=== PATIENT | female | born 1950 | race Caucasian/White ===

== ENCOUNTER → 2017-04-23 | Outpatient (CLI) | payer BC ==
[2017-04-23 18:06] LABS: ALB/GLOB RATIO 0.8 (0.9-2); ALKALINE PHOSPHATASE 113 U/L (45-117); ALT/SGPT 80 U/L (12-78); AST/SGOT 47 U/L (15-37); BLOOD UREA NITROGEN 16 mg/dl (7-18); BUN/CREATININE RATIO 14.1 (10-20); CALCIUM 9.3 mg/dl (8.5-10.1); CARBON DIOXIDE 28 mmol/L (21-32); CHLORIDE 100 mmol/L (98-107); CHOLESTEROL 225 mg/dl (0-200); CHOLESTEROL/HDL RATIO 5.1; GLUCOSE 327 mg/dl (70-99); HDL CHOLESTEROL 44 mg/dl; LDL CHOLESTEROL CALCULATED 112 mg/dl; POTASSIUM 4.5 mmol/L (3.5-5.1); SODIUM 136 mmol/L (136-145); TRIGLYCERIDES 343 mg/dl (0-150); VERY LOW DENSITY LIPOPROT CALC 69 mg/dl
[2017-04-23 19:09] LABS: BETA-HYDROXYBUTYRATE 1.66 mg/dL (0.2-2.81)
== END | disposition home or self-care (01) ==
LOC: C.LABPBG 15:49
PROVIDERS: ATTEND Physician Assistant
DX: Z00.00 Encounter for general adult medical examination without abnormal findings (principal); E11.9 Type 2 diabetes mellitus without complications

== ENCOUNTER → 2017-07-02 | Outpatient (CLI) | payer BC ==
[2017-07-02 12:32] LABS: ESTIMATED AVERAGE GLUCOSE 275 mg/dl; HA1C FLAG Normal (Normal)
[2017-07-02 12:34] LABS: RATIO 65.5 mcg/mg (0-30.0)
== END | disposition home or self-care (01) ==
LOC: C.LABPBG 08:04
PROVIDERS: ATTEND Nurse Practitioner Family
DX: E11.9 Type 2 diabetes mellitus without complications (principal)

== ENCOUNTER → 2017-10-01 | Outpatient (CLI) | payer BC ==
[2017-10-01 11:51] LABS: BLOOD UREA NITROGEN 20 mg/dl (7-18); BUN/CREATININE RATIO 18.4 (10-20); CALCIUM 9.2 mg/dl (8.5-10.1); CARBON DIOXIDE 29 mmol/L (21-32); CHLORIDE 101 mmol/L (98-107); CREATININE 1.06 mg/dl (0.60-1.20); GLUCOSE 157 mg/dl (70-99); POTASSIUM 4.3 mmol/L (3.5-5.1); SODIUM 136 mmol/L (136-145)
[2017-10-01 12:11] LABS: RATIO 46.2 mcg/mg (0-30.0)
[2017-10-01 12:20] LABS: ESTIMATED AVERAGE GLUCOSE 237 mg/dl; HA1C FLAG Normal (Normal)
== END | disposition home or self-care (01) ==
LOC: C.LABPBG 07:41
PROVIDERS: ATTEND Nurse Practitioner Family
DX: E11.65 Type 2 diabetes mellitus with hyperglycemia (principal)

== ENCOUNTER → 2017-11-01 | Outpatient (CLI) | payer BC ==
[2017-11-01 13:25] LABS: HEMOGLOBIN A1C 9.7 % (4.5-5.6)
[2017-11-01 13:36] LABS: BLOOD UREA NITROGEN 22 mg/dl (7-18); CALCIUM 9.2 mg/dl (8.5-10.1); CARBON DIOXIDE 27 mmol/L (21-32); CREATININE 1.01 mg/dl (0.60-1.20); GLUCOSE 167 mg/dl (70-99); POTASSIUM 4.2 mmol/L (3.5-5.1); SODIUM 137 mmol/L (136-145)
[2017-11-01 13:39] LABS: CHOLESTEROL 154 mg/dl (0-200); LDL CHOLESTEROL CALCULATED 67 mg/dl
== END | disposition home or self-care (01) ==
LOC: C.LABPBG 07:37
PROVIDERS: ATTEND Physician Assistant
DX: Z00.00 Encounter for general adult medical examination without abnormal findings (principal); E11.65 Type 2 diabetes mellitus with hyperglycemia

== ENCOUNTER → 2018-01-30 | Outpatient (CLI) | payer BC ==
[2018-01-30 13:02] LABS: HEMOGLOBIN A1C 8.2 % (4.5-5.6)
== END | disposition home or self-care (01) ==
LOC: C.LABPBG 07:36
PROVIDERS: ATTEND Nurse Practitioner Family
DX: E11.65 Type 2 diabetes mellitus with hyperglycemia (principal)

== ENCOUNTER → 2018-05-23 | Outpatient (CLI) | payer BC ==
--- NOTE | 2018-05-23 10:53 | DIAGNOSTIC IMAGING REPORT ---
R INJ MAJOR JNT SHLDR,HIP,KNEE FLUOROSCOPY TIME: 22 seconds HISTORY: Chronic right hip pain. PROCEDURE: After obtaining written informed consent, the patient was placed supine on the fluoroscopy table. A suitable site for needle insertion was marked using fluoroscopic guidance. The right hip was prepped and draped in the usual sterile fashion. 1% lidocaine was used for skin, subcutaneous and deep soft tissue anesthesia. Under intermittent fluoroscopic guidance, a 22 gauge x 3.5 inch spinal needle was inserted into the right femoral acetabular joint. 2 cc of Optiray 300 was injected to confirm the intra-articular location. This is followed by a mixture of 5cc of 0.5% bupivacaine and 2 cc of Celestone at the request of the referring physician. The needle was then removed. There were no apparent complications. IMPRESSION: Fluoroscopic-guided right hip steroid injection without immediate complication. The above report was generated using voice recognition software. It may contain grammatical, syntax or spelling errors. Electronically signed by: Jadiel Yeung M.D. 05/23/2018 10:51 AM Dictated Date/Time: 05/23/2018 10:50 AM
== END | disposition home or self-care (01) ==
LOC: C.RADBC 09:35
PROVIDERS: ATTEND Orthopaedic Surgery
DX: M16.11 Unilateral primary osteoarthritis, right hip (principal)

== ENCOUNTER 2022-01-10 18:55 | Inpatient (IN) ==
[2022-01-10] MEDS ORDERED: SODIUM CHLORIDE 0.9% 1000ML 1,000 ML IV ONE (20:04)
[2022-01-10] MEDS ORDERED: ACETAMINOPHEN 1,000 MG/100 ML VIAL IV STA (20:20)
[2022-01-10 20:22] LABS: Appearance Urine Turbid (Clear); Bacteria Urine Automated 2+ (Negative); Bilirubin Urine Negative (Negative); Blood Urine 3+ (Negative); Color Urine Yellow; Epithelial Cell Urine Auto >30 /lpf (0-5); Glucose Urine UA Trace (Negative); Ketones Urine Trace (Negative); Leukocyte Esterase Urine 1+ (Negative); Nitrite Urine Negative (Negative); Protein Urine 2+ (Negative); Specific Gravity Urine 1.021 (1.000-1.030); Urobilinogen Urine Negative (Negative)
[2022-01-10 20:32] LABS: Basophils # (auto) 0.02 K/uL (0-0.2); Basophils % (auto) 0.1 %; Eosinophils # (auto) 0.16 K/uL (0-0.5); Eosinophils % (auto) 0.9 %; Hematocrit (blood only) 42.2 % (37-47); Hemoglobin 13.4 g/dL (12.0-16.0); Immature Granulocytes # (auto) 0.05 K/uL (0.00-0.02); Immature Granulocytes % (auto) 0.3 %; Lymphocytes # (auto) 2.06 K/uL (1.2-3.4); Lymphocytes % (auto) 11.2 %; Mean Corpuscular Hemoglobin 26.3 pg (25-34); Mean Corpuscular Hgb Conc 31.8 g/dL (32-36); Mean Corpuscular Volume 82.9 fL (80-100); Mean Platelet Volume 9.7 fL (7.4-10.4); Monocytes # (auto) 0.94 K/uL (0.11-0.59); Monocytes % (auto) 5.1 %; Neutrophils # (auto) 15.19 K/uL (1.4-6.5); Neutrophils % (auto) 82.4 %; Platelet Count 400 K/uL (130-400); RDW Coefficient of Variation 15.1 % (11.5-14.5); RDW Standard Deviation 45.9 fL (36.4-46.3); Red Blood Count 5.09 M/uL (4.2-5.4); White Blood Count 18.42 K/uL (4.8-10.8)
[2022-01-10 20:34] LABS: Uric Acid Crystals Urine Present (None Prsent)
[2022-01-10] MEDS ORDERED: ONDANSETRON INJ 2 MG/ML 2 ML VIAL ONE (20:36)
[2022-01-10 20:44] LABS: Troponin I < 0.03 ng/ml (0-0.04)
[2022-01-10 20:47] LABS: Alanine Aminotransferase 28 U/L (7-52); Albumin Globulin Ratio 1.1 (0.9-2); Albumin Level 4.4 gm/dl (3.4-5.0); Alkaline Phosphatase 81 U/L (34-104); Anion Gap 11 (3-11); Aspartate Aminotransferase 20 U/L (13-39); BUN Creatinine Ratio 13.8 (10-20); Bilirubin Direct 0.1 mg/dl (0-0.2); Bilirubin,Total 0.3 mg/dl (0.2-1.0); Blood Urea Nitrogen 17 mg/dl (6-23); Calcium 9.8 mg/dl (8.5-10.1); Carbon Dioxide 24 mmol/L (21-32); Chloride 104 mmol/L (98-107); Creatinine Clr Calc Pharmacy 43.5 ml/min; Est GFR (African American) 50.7 ml/min; Est GFR (Non-African American) 43.8 ml/min; Glucose 150 mg/dl (70-99(Fasting)); Lipase 42 U/L (11-82); Magnesium 1.5 mg/dl (1.7-2.4); Potassium 3.9 mmol/L (3.5-5.1); Sodium 139 mmol/L (136-145); Total Protein 8.4 gm/dl (6.0-8.3)
[2022-01-10] MEDS ORDERED: OPTIRAY 320 100ml IV ONE (21:02)
[2022-01-10] MEDS ORDERED: MAGNESIUM SULFATE / D5W 1 GM/100 ML BAG IV STA (21:25)
[2022-01-10] MEDS ORDERED: cefTRIAXone SODIUM 2,000 MG/70 ML BAG IV STA (21:56)
--- NOTE | 2022-01-10 22:53 | History & Physical Report ---
Date of Service January 10, 2022 Assessment & Plan (1) Renal stone: Plan: 71yo female with one day of severe left flank pain, nausea. Found to have obstructing stone in left ureter, 1mm in size with associated hydroureteronephrosis and perinephric stranding. UA with possible infection - bacteria present as well as LE/WBCs and blood. Also with Uric Acid crystals - ?uric acid stone. Patient with history of MGUS/Essential thrombocytosis, chronically elevated WBC count -Admit to medical. Keep NPO -Strain urine -Flomax 0.4mg now and qHS -Zofran PRN nausea -Tylenol and Morphine PRN pain -Ceftriaxone 2gm IV daily -Follow urine and blood cultures sent in ER -IVF with LR at 125mL/hr x 2 liters -Urology consultation appreciated -Stone studies may be helpful (2) Diabetes type 2, uncontrolled: Plan: Chronic. Well controlled. Last EpdK2M=3.3 on 09/26/21 -Lantus 8u BID -ISS -Goal blood sugar 100 - 140 (3) Hypertension: Plan: Elevated blood pressure, history of HTN -Pain control as above -Continue Clonidine 0.2mg po BID -Continue Lisinopril 40mg po daily -Continue to monitor (4) Dyslipidemia: Plan: Chronic. On medications -Continue Atorvastatin 10mg po qHS (5) Hypothyroidism: Plan: Chronic. Elevated TSH on last check -TSH with AM labs -Continue Synthroid 50mcg po daily (6) GERD (gastroesophageal reflux disease): Plan: Chronic. Well controlled on medications -Continue Protonix 40mg po daily (7) Chronic kidney disease, stage 3 (moderate): Plan: BUN and Cr near baseline -Avoid nephrotoxic agents -Monitor UOP, BUN/Cr and electroltyes Plan: F/E/N - LR at 125mL/hr x 2 liters, monitor electroltyes, NPO for now Ppx - SCDs Code - DNR/DNI per discusison with patient Dispo - Admit to medical History of Present Illness Chief Complaint: left flank pain Primary Care Provider: DO Zaria Reina is a pleasant 71yo female with history of CKD, DM, HTN, GERD, MGUS/ET presenting with acute onset left flank pain. Pain began this AM - left flank with radiation into the left groin. 7/10 in severity at its worst, intermittent, aching sensation. Also with nausea, chills and sweats. Reports decreased UOP. No dysuria, chest pain, palpitations, SOB. No abdominal pain. No history of renal stones. IN the ER patient afebrile, hypertensive otherwise HD stable. In significant discomfort ER Course: Tylenol, Ceftriaxone, Zofran, NSS Allergies Allergy/AdvReac Type Severity Reaction Status Date / Time amlodipine AdvReac Mild lower leg Verified 01/10/22 20:35 swelling Home Medications Medication Instructions Recorded Confirmed Type calcium carbonate 600 mg-vitamin 1 tab PO BID #90 tab 03/29/19 01/10/22 Rx D3 10 mcg (400 unit) tablet (Calcium 600 + D(3)) insulin syringe-needle U-100 1 mL #90 ea 03/31/19 01/10/22 Rx 31 gauge x 5/16" (BD Insulin Syringe Ultra-Fine) cyanocobalamin (vitamin B-12) 1,000 mcg PO .COMPLEX tab 04/29/19 01/10/22 History 1,000 mcg tablet pen needle, diabetic 32 gauge x #300 ea 11/07/19 01/10/22 Rx 5/32" (BD Ultra-Fine Mariama Pen Needle) ferrous sulfate 325 mg (65 mg 325 mg PO BID 08/31/20 01/10/22 History iron) tablet pantoprazole 40 mg tablet,delayed 40 mg PO DAILY #90 tab 06/14/21 01/10/22 Rx release lisinopril 40 mg tablet 40 mg PO DAILY #90 tab 06/15/21 01/10/22 Rx metformin 1,000 mg tablet 1,000 mg PO BID #180 tab 06/15/21 01/10/22 Rx gabapentin 300 mg capsule 300 mg PO HS #90 cap 08/19/21 01/10/22 Rx clonidine HCl 0.2 mg tablet 0.2 mg PO BID #180 tab 09/09/21 01/10/22 Rx diclofenac sodium 1 % topical gel 2 g TOP QID PRN #100 gm 09/09/21 01/10/22 Rx levothyroxine 50 mcg tablet 50 mcg PO DAILY #30 tab 09/27/21 01/10/22 Rx insulin lispro protamine-lispro See Rx Instructions SQ TID #45 ml 03/09/22 03/22/22 Rx 100 unit/mL (75-25) subcutaneous pen (Humalog Mix 75-25 KwikPen) blood sugar diagnostic (FreeStyle #100 ea 01/05/22 01/10/22 Rx Lite Strips) blood-glucose meter (FreeStyle #1 ea 01/05/22 01/10/22 Rx Lite Meter) lancets 28 gauge (FreeStyle #100 ea 01/05/22 01/10/22 Rx Lancets) atorvastatin 10 mg tablet 10 mg PO HS 01/10/22 01/10/22 History Past Med/Surg History Medical History (Updated 01/11/22 @ 03:03 by Demetra Levy DO) Chronic kidney disease, stage 3 (moderate) Diabetes type 2, uncontrolled Diabetic nephropathy Dyslipidemia Essential thrombocytosis GERD (gastroesophageal reflux disease) History of gastric ulcer Hypothyroidism Iron deficiency anemia JAK2 gene mutation Leukocytosis Microalbuminuria Monoclonal gammopathy of unknown significance (MGUS) Neuropathy Osteoarthritis of right hip Tachycardia Surgical History H/O colonoscopy H/O endoscopy History of cholecystectomy S/P tonsillectomy Family History Father Heart disease Hypertension Family history of cardiac disorder Family history of gallbladder disease Brother Diabetes Lung cancer Mother Diabetes Family history of gallbladder disease Denies family history of Family history of colon cancer Ovarian cancer Prostate cancer Myocardial infarction Breast cancer Social History Smoking Status: Never smoker Second Hand Exposure: No; Hx Alcohol Use: No Hx Substance Use: No Preferred Language: Burkinan Communication Ability: Effective Visual Impairment: Limited Hearing Ability: Normal Interactive Account Manager Required: No Beliefs That Will Affect Care: None marital status: Current Living Situation: Spouse Current Living Situation Comment: current occupational status: retired How many Children do You have: 4 Other Information That Helps Us Care for You: No Feels Safe at Home: Yes Safety Concerns: Feels Safe At This Time Childhood Exposure to Second-Hand Smoke: No Diet Comment: regular caffeine: Yes (tea in morning) during the past year weight has: remained stable Dental Care, Regularly: No Physical Activity Frequency: Does not Exercise Seatbelt Use: never Sunscreen Use: No Assistive Devices: Glasses Review of Systems Review of Systems: All systems reviewed & are unremarkable except as noted in HPI & below Physical Exam Physical Exam: General: patient uncomfortable in appearance, NAD Skin: warm, dry, intact, no rashes or lesions HEENT: NC/AT, PERRL, EOMI, anicteric sclera, conjunctiva without injection, external ear normal to inspection and nontender, nares patent, moist mucus membranes, dentition intact, no oropharyngeal lesions, neck supple, trachea midline, no LAD, no thyromegaly, no JVD Heart: +S1/S2, regular, no m/r/g Lungs: equal air entry bilaterally, no rales/rhonchi/wheezes Abd: +BS, soft, NT/ND, no masses/organomegaly/ascites, +Left CVA tenderness Ext: warm, 2+ pulses in UE/LE bilaterally, no clubbing/cyanosis or edema Neuro: nonfocal, patient AA&O x 4, speech intact, no facial droop, moving all extremities on command with equal strength 5/5 Results & Data Results & Data ([facility]) Vital Signs (Past 12 Hours) Vital Signs Temp Pulse Resp BP Pulse Ox 01/10/22 20:00 94 H 18 97 01/10/22 18:49 36.6 C 75 18 185/82 H 96 Laboratory Results Laboratory Results WBC 18.42 K/uL (4.8-10.8) H 01/10/22 19:11 RBC 5.09 M/uL (4.2-5.4) 01/10/22 19:11 Hgb 13.4 g/dL (12.0-16.0) 01/10/22 19:11 Hct 42.2 % (37-47) 01/10/22 19:11 MCV 82.9 fL (80-100) 01/10/22 19:11 MCH 26.3 pg (25-34) 01/10/22 19:11 MCHC 31.8 g/dL (32-36) L 01/10/22 19:11 RDW Std Deviation 45.9 fL (36.4-46.3) 01/10/22 19:11 RDW Coeff of Belkis 15.1 % (11.5-14.5) H 01/10/22 19:11 Plt Count 400 K/uL (130-400) 01/10/22 19:11 MPV 9.7 fL (7.4-10.4) 01/10/22 19:11 Immature Gran % (Auto) 0.3 % 01/10/22 19:11 Neut % (Auto) 82.4 % 01/10/22 19:11 Lymph % (Auto) 11.2 % 01/10/22 19:11 [place] % (Auto) 5.1 % 01/10/22 19:11 Eos % (Auto) 0.9 % 01/10/22 19:11 Baso % (Auto) 0.1 % 01/10/22 19:11 Neut # (Auto) 15.19 K/uL (1.4-6.5) H 01/10/22 19:11 Lymph # (Auto) 2.06 K/uL (1.2-3.4) 01/10/22 19:11 [place] # (Auto) 0.94 K/uL (0.11-0.59) H 01/10/22 19:11 Eos # (Auto) 0.16 K/uL (0-0.5) 01/10/22 19:11 Baso # (Auto) 0.02 K/uL (0-0.2) 01/10/22 19:11 Immature Gran # (Auto) 0.05 K/uL (0.00-0.02) H 01/10/22 19:11 Sodium 139 mmol/L (136-145) 01/10/22 19:11 Potassium 3.9 mmol/L (3.5-5.1) 01/10/22 19:11 Chloride 104 mmol/L (98-107) 01/10/22 19:11 Carbon Dioxide 24 mmol/L (21-32) 01/10/22 19:11 Anion Gap 11 (3-11) 01/10/22 19:11 BUN 17 mg/dl (6-23) 01/10/22 19:11 Creatinine 1.23 mg/dl (0.6-1.2) H 01/10/22 19:11 Est Cr Clr Drug Dosing 43.5 ml/min 01/10/22 19:11 Est GFR ( Amer) 50.7 ml/min 01/10/22 19:11 Est GFR (Non-Af Amer) 43.8 ml/min 01/10/22 19:11 BUN/Creatinine Ratio 13.8 (10-20) 01/10/22 19:11 Glucose 150 mg/dl (70-99(Fasting)) H 01/10/22 19:11 POC Glucose 81 mg/dl (70-99) 01/11/22 00:49 Lactate 2.6 mmol/L (0.4-2.0) H* 01/11/22 01:39 Uric Acid 5.9 mg/dl (2.6-7.2) 01/10/22 19:11 Calcium 9.8 mg/dl (8.5-10.1) 01/10/22 19:11 Magnesium 1.5 mg/dl (1.7-2.4) L 01/10/22 19:11 Total Bilirubin 0.3 mg/dl (0.2-1.0) 01/10/22 19:11 Direct Bilirubin 0.1 mg/dl (0-0.2) 01/10/22 19:11 AST 20 U/L (13-39) 01/10/22 19:11 ALT 28 U/L (7-52) 01/10/22 19:11 Alkaline Phosphatase 81 U/L (34-104) 01/10/22 19:11 Troponin I < 0.03 ng/ml (0-0.04) 01/10/22 19:11 Total Protein 8.4 gm/dl (6.0-8.3) H 01/10/22 19:11 Albumin 4.4 gm/dl (3.4-5.0) 01/10/22 19:11 Globulin 4.0 gm/dl (2.5-4.0) 01/10/22 19:11 Albumin/Globulin Ratio 1.1 (0.9-2) 01/10/22 19:11 Lipase 42 U/L (11-82) 01/10/22 19:11 Procalcitonin < 0.05 ng/ml (0-0.5) 01/10/22 19:11 Urine Color Yellow 01/10/22 19:15 Urine Appearance Turbid (Clear) A 01/10/22 19:15 Urine pH 5.0 (4.5-7.5) 01/10/22 19:15 Ur Specific [place] 1.021 (1.000-1.030) 01/10/22 19:15 Urine Protein 2+ (Negative) H 01/10/22 19:15 Urine Glucose (UA) Trace (Negative) H 01/10/22 19:15 Urine Ketones Trace (Negative) H 01/10/22 19:15 Urine Blood 3+ (Negative) H 01/10/22 19:15 Urine Nitrite Negative (Negative) 01/10/22 19:15 Urine Bilirubin Negative (Negative) 01/10/22 19:15 Urine Urobilinogen Negative (Negative) 01/10/22 19:15 Ur Leukocyte Esterase 1+ (Negative) H 01/10/22 19:15 Urine WBC (Auto) 10-30 /hpf (0-5) H 01/10/22 19:15 Urine RBC (Auto) 10-30 /hpf (0-4) H 01/10/22 19:15 U Hyaline Cast (Auto) 5-10 /lpf (0-5) H 01/10/22 19:15 U Epithel Cells (Auto) >30 /lpf (0-5) H 01/10/22 19:15 Urine Bacteria (Auto) 2+ (Negative) H 01/10/22 19:15 Urine Crystals Uric Acid (None Prsent) A 01/10/22 19:15 Uric Acid Crystals Present (None Prsent) A 01/10/22 19:15 SARS-CoV-2, RNA, NAAT NEGATIVE (NEGATIVE) 01/10/22 20:[address] Abdomen/Pelvis - Per STAT rad - moderate left hydroureteronephrosis and perinephric edema secondary to a 1mm obstructing stone in the left distal ureter near the UVJ. Incidental fatty liver, pancreatic calcification, RML pulmonary nodule and scattered scarring in the lung bases. Normal appendix and right kidney. Code Status & VTE Plan VTE Prophylaxis Plan VTE Prophylaxis will be ordered: Yes PG Care Time/CCT Total # of Minutes Spent Total Time Spent with Patient: Total time spent is greater than 50% in coordination of care (as documented) at patient's floor/unit and/or counseling patient: Coding Level of Care Code 33600 Initial Inpt Care Lvl 3 Diagnoses Hypothyroidism E03.9 GERD (gastroesophageal reflux disease) K21.9 Chronic kidney disease, stage 3 (moderate) N18.3 Diabetes type 2, uncontrolled E11.65 Dyslipidemia E78.5 Renal stone N20.0 Hypertension I10
[2022-01-11] MEDS ORDERED: CARBOHYDRATES FOR HYPOGLYCEMIA PO PRN (01:02)
[2022-01-11] MEDS ORDERED: GLUCOSE 10 TABS/TUBE PO PRN (01:02)
[2022-01-11] MEDS ORDERED: TAMSULOSIN HCL 0.4 MG CAP PO ONE (01:02)
[2022-01-11] MEDS ORDERED: MoRPHine SULFATE 2 MG/ML CARP IV PRN (01:02)
[2022-01-11] MEDS ORDERED: ONDANSETRON INJ 2 MG/ML 2 ML VIAL IV PRN ×2 (01:02→13:40)
[2022-01-11] MEDS ORDERED: DICLOFENAC SOD 1% GEL 100 GM TUBE EXT PRN (01:02)
[2022-01-11] MEDS ORDERED: GLUCAGON FOR INJ 1 MG VIAL SQ PRN (01:02)
[2022-01-11] MEDS ORDERED: ACETAMINOPHEN 325 MG TAB PO PRN (01:02)
[2022-01-11] MEDS ORDERED: GLUCOSE 40% GEL 15 GM TUBE PO PRN (01:02)
[2022-01-11] MEDS ORDERED: DEXTROSE 50% 50 ML SYRINGE IV PRN (01:02)
[2022-01-11] MEDS: LACTATED RINGER'S 1,000 ML IV SCH ×2 (01:20→07:57)
[2022-01-11] MEDS: GABAPENTIN 300 MG CAP PO SCH ×2 (02:50→20:39)
[2022-01-11] MEDS: ATORVASTATIN 10 MG TAB PO SCH ×2 (02:50→20:39)
--- NOTE | 2022-01-11 03:25 | Emergency Department Note ---
Impression & Plan Ureterolithiasis, Leukocytosis, Hydronephrosis due to obstruction of ureter, Urinary tract infection, Hypomagnesemia ED Provider Note NAME: JAMEEL PAUL AGE: 71 SEX: F ARRIVES VIA: Ambulance INFORMANT: Patient ED PROVIDER(S): Davy Ackerman MD CHIEF COMPLAINT: Abdominal pain PLAN: Disposition: Admit MEDICAL DECISION MAKING: The patient is a pleasant 71-year-old woman with a pmhx of MGUS, iron deficiency anemia, HTN, HLD, CKD, DM, PUD who presents to the emergency department for evaluation of left lower quadrant abdominal pain with associated chills this afternoon and nausea and one became been severe. She denies any burning with urination but does note that her urine has appeared dark. She denies any cough, congestion, chest pain, shortness of breath. On arrival the patient is uncomfortable appearing but no acute distress, afebrile with BP 160-180s/80-90s and otherwise with stable vital signs. She appears clinically dry. She has mild left lower quadrant tenderness without guarding or rebound. EKG without overt acute ischemia. WBC is 18K increased from prior in setting of MGUS, nonspecific. H/H and platelets within normal limits.Initial lactate 2.6. Chemistry without metabolic acidosis. Cr. 1.23 similar to prior range of values. Magnesium 1.5. Otherwise, electrolytes and LFTs unremarkable.Troponin negative/undetectable. UA is suspicious for infection albeit with epithelial cells present.Nitrite negative.Procalcitonin is undetectable. Lipase is not elevated. CT of the abdomen pelvis was performed and per preliminary stat read report demonstrates 1 mm obstructing distal left ureteral stone at the UVJ with associated moderate hydroureteronephrosis and perinephric edema. Given the patient's leukocytosis and feverishness prior to arrival in the setting of the patient's obstructive ur eteral stone and possible infection we did agree with plan for admission for IV antibiotics and monitoring. Case was discussed with urology on-call, Dr. Blunt, and agrees with admission to medicine service and they will evaluate the patient in the morning. Case was d/w Dr. Levy, [facility] hospitalist who will evaluate the patient for admission. Triage Nursing notes reviewed and agree them. Prior medical records reviewed Vital Signs: reviewed and remarkable for htn. Differential diagnosis: Renal colic, UTI, appendicitis, diverticulitis, mesenteric ischemia, aortic pathology, infections, inflammatory bowel disease, PUD, biliary pathology, as well as other pathologies. ER treatment provided: See below. Diagnostics interpreted by me: ECG: NSR, 81bpm, no ectopy, no overt ST elevation or depression. Cardiac Monitoring: An order for continuous cardiac monitoring was placed and demonstrated NSR, 81bpm, no ectopy. Laboratory studies: See below Imaging studies: See below Consultation(s): Dr. Blunt, [place] urology Dr. Levy, [facility] hospitalist HPI: The patient is a pleasant 71-year-old woman with a pmhx of MGUS, iron deficiency anemia, HTN, HLD, CKD, DM, PUD who presents to the emergency department for evaluation of left lower quadrant abdominal pain with associated chills this afternoon and nausea and one became been severe. She denies any burning with urination but does note that her urine has appeared dark. She denies any cough, congestion, chest pain, shortness of breath. ROS: See above HPI for pertinent positives & negatives. A total of 10 systems reviewed and were otherwise negative. VITALS:See Below PHYSICAL EXAMINATION: GENERAL: Awake, alert, uncomfortable-appearing, in no distress HENT: Normocephalic, atraumatic. Oropharynx with dry mucous membranes and otherwise unremarkable. EYES: Normal conjunctiva. Sclera non-icteric. NECK: Supple. No nuchal rigidity. FROM. No JVD. RESPIRATORY: Clear to auscultation. CARDIAC: Regular rate, normal rhythm. Extremities warm and well perfused. Pulses equal. ABDOMEN: Soft, non-distended. Mild LLQ tenderness to palpation. No rebound or guarding. No masses. RECTAL: Deferred. MUSCULOSKELETAL: Chest examination reveals no tenderness. The back is symmetrical on inspection without obvious abnormality. There is no CVA tenderness to palpation. No joint edema. LOWER EXTREMITIES: Calves are equal size bilaterally and non-tender. No edema. No discoloration. NEURO: Normal sensorium. No sensory or motor deficits noted. SKIN: No rash or jaundice noted. Davy Ackerman MD Past Med/Surg History Medical History Chronic kidney disease, stage 3 (moderate) Diabetes type 2, uncontrolled Diabetic nephropathy Dyslipidemia Essential thrombocytosis GERD (gastroesophageal reflux disease) History of gastric ulcer Hypothyroidism Iron deficiency anemia JAK2 gene mutation Leukocytosis Microalbuminuria Monoclonal gammopathy of unknown significance (MGUS) Neuropathy Osteoarthritis of right hip Tachycardia Surgical History H/O colonoscopy H/O endoscopy History of cholecystectomy S/P tonsillectomy Family History Father Heart disease Hypertension Family history of cardiac disorder Family history of gallbladder disease Brother Diabetes Lung cancer Mother , February 2021 Diabetes Family history of gallbladder disease Denies family history of Family history of colon cancer Ovarian cancer Prostate cancer Myocardial infarction Breast cancer Social History Smoking Status: Never smoker Second Hand Exposure: No; Hx Alcohol Use: No Hx Substance Use: No Preferred Language: Polish Communication Ability: Effective Visual Impairment: Limited Hearing Ability: Normal Worksite Wellness Practitioner Required: No Beliefs That Will Affect Care: None marital status: Current Living Situation: Spouse Current Living Situation Comment: current occupational status: retired How many Children do You have: 4 Other Information That Helps Us Care for You: No Feels Safe at Home: Yes Safety Concerns: Feels Safe At This Time Childhood Exposure to Second-Hand Smoke: No Diet Comment: regular caffeine: Yes (tea in morning) during the past year weight has: remained stable Dental Care, Regularly: No Physical Activity Frequency: Does not Exercise Seatbelt Use: never Sunscreen Use: No Assistive Devices: Glasses Allergies Allergies Allergy/AdvReac Type Severity Reaction Status Date / Time amlodipine AdvReac Mild lower leg Verified 01/10/22 20:35 swelling Home Meds Home Medications Medication Instructions Recorded Confirmed cyanocobalamin (vitamin B-12) 1,000 mcg PO .COMPLEX tab 04/29/19 01/10/22 1,000 mcg tablet ferrous sulfate 325 mg (65 mg 325 mg PO BID 08/31/20 01/10/22 iron) tablet atorvastatin 10 mg tablet 10 mg PO HS 01/10/22 01/10/22 Previous Rx's Medication Instructions Recorded calcium carbonate 600 mg-vitamin 1 tab PO BID #90 tab 03/29/19 D3 10 mcg (400 unit) tablet (Calcium 600 + D(3)) insulin syringe-needle U-100 1 mL #90 ea 06/10/19 31 gauge x 5/16" (BD Insulin Syringe Ultra-Fine) pen needle, diabetic 32 gauge x #300 ea 11/07/19 532" (BD Ultra-Fine Mariama Pen Needle) pantoprazole 40 mg tablet,delayed 40 mg PO DAILY #90 tab 06/14/21 release lisinopril 40 mg tablet 40 mg PO DAILY #90 tab 06/15/21 metformin 1,000 mg tablet 1,000 mg PO BID #180 tab 06/15/21 gabapentin 300 mg capsule 300 mg PO HS #90 cap 08/19/21 clonidine HCl 0.2 mg tablet 0.2 mg PO BID #180 tab 09/09/21 diclofenac sodium 1 % topical gel 2 g TOP QID PRN #100 gm 09/09/21 levothyroxine 50 mcg tablet 50 mcg PO DAILY #30 tab 09/27/21 insulin lispro protamine-lispro See Rx Instructions SQ TID #45 ml 12/28/21 100 unit/mL (75-25) subcutaneous pen (Humalog Mix 75-25 KwikPen) blood sugar diagnostic (FreeStyle #100 ea 01/05/22 Lite Strips) blood-glucose meter (FreeStyle #1 ea 01/05/22 Lite Meter) lancets 28 gauge (FreeStyle #100 ea 01/05/22 Lancets) Results & Data (ED) Vital Signs Vital Signs - 24 hr 01/10/22 18:49 01/10/22 19:24 01/10/22 19:30 Temperature 36.6 C Temperature Source Oral Pulse Rate 75 66 64 Pulse Rate [Right Finger] Pulse Rate from SpO2 Sensor 66 64 Pulse Rhythm Pulse Rhythm [Right Finger] Pulse Strength [Right Finger] Respiratory Rate 18 14 14 Respiratory Effort / Characteristics Non-Labored Respiratory Depth Normal Blood Pressure 185/82 H 165/92 H Blood Pressure [Right Arm] Blood Pressure Mean 116 116 Blood Pressure Mean [Right Arm] Blood Pressure Position Lying Blood Pressure Position [Right Arm] Pulse Oximetry 96 99 98 Oxygen Delivery Method Room Air Sepsis Recent Fever Within 48 Hours No Sepsis New/Unexplained Change in Mental Status No Sepsis Action Taken by Nursing No Action Required 01/10/22 20:00 01/10/22 20:02 01/10/22 20:32 Temperature Temperature Source Pulse Rate 94 H 75 74 Pulse Rate [Right Finger] Pulse Rate from SpO2 Sensor 77 78 Pulse Rhythm Regular Pulse Rhythm [Right Finger] Pulse Strength [Right Finger] Respiratory Rate 18 22 14 Respiratory Effort / Characteristics Respiratory Depth Blood Pressure Blood Pressure [Right Arm] Blood Pressure Mean Blood Pressure Mean [Right Arm] Blood Pressure Position Blood Pressure Position [Right Arm] Pulse Oximetry 97 98 99 Oxygen Delivery Method Room Air Sepsis Recent Fever Within 48 Hours Sepsis New/Unexplained Change in Mental Status Sepsis Action Taken by Nursing 01/10/22 20:49 01/10/22 21:09 01/10/22 21:32 Temperature Temperature Source Pulse Rate 85 75 Pulse Rate [Right Finger] 82 Pulse Rate from SpO2 Sensor 84 75 Pulse Rhythm Pulse Rhythm [Right Finger] Regular Pulse Strength [Right Finger] Normal Respiratory Rate 18 14 16 Respiratory Effort / Characteristics Non-Labored Respiratory Depth Normal Blood Pressure Blood Pressure [Right Arm] 185/84 H Blood Pressure Mean Blood Pressure Mean [Right Arm] 117 Blood Pressure Position Blood Pressure Position [Right Arm] Lying Pulse Oximetry 94 98 97 Oxygen Delivery Method Room Air Sepsis Recent Fever Within 48 Hours Sepsis New/Unexplained Change in Mental Status Sepsis Action Taken by Nursing 01/10/22 22:00 01/10/22 22:33 Temperature Temperature Source Pulse Rate 68 85 Pulse Rate [Right Finger] Pulse Rate from SpO2 Sensor 67 86 Pulse Rhythm Pulse Rhythm [Right Finger] Pulse Strength [Right Finger] Respiratory Rate 14 17 Respiratory Effort / Characteristics Respiratory Depth Blood Pressure 192/83 H Blood Pressure [Right Arm] Blood Pressure Mean 119 Blood Pressure Mean [Right Arm] Blood Pressure Position Blood Pressure Position [Right Arm] Pulse Oximetry 98 98 Oxygen Delivery Method Sepsis Recent Fever Within 48 Hours Sepsis New/Unexplained Change in Mental Status Sepsis Action Taken by Nursing Laboratory Data Attestation: I reviewed the patient's lab results. Result diagrams: 01/10/22 19:11 01/10/22 19:11 Lab Results 01/10/22 01/10/22 01/10/22 Range/Units 19:11 19:11 19:11 WBC 18.42 H (4.8-10.8) K/uL RBC 5.09 (4.2-5.4) M/uL Hgb 13.4 (12.0-16.0) g/dL Hct 42.2 (37-47) % MCV 82.9 (80-100) fL MCH 26.3 (25-34) pg MCHC 31.8 L (32-36) g/dL RDW Std Deviation 45.9 (36.4-46.3) fL RDW Coeff of Belk[place] 15.1 H (11.5-14.5) % Plt Count 400 (130-400) K/uL MPV 9.7 (7.4-10.4) fL Immature Gran % (Auto) 0.3 % Neut % (Auto) 82.4 % Lymph % (Auto) 11.2 % [place] % (Auto) 5.1 % Eos % (Auto) 0.9 % Baso % (Auto) 0.1 % Neut # (Auto) 15.19 H (1.4-6.5) K/uL Lymph # (Auto) 2.06 (1.2-3.4) K/uL [place] # (Auto) 0.94 H (0.11-0.59) K/uL Eos # (Auto) 0.16 (0-0.5) K/uL Baso # (Auto) 0.02 (0-0.2) K/uL Immature Gran # (Auto) 0.05 H (0.00-0.02) K/uL Sodium 139 (136-145) mmol/L Potassium 3.9 (3.5-5.1) mmol/L Chloride 104 (98-107) mmol/L Carbon Dioxide 24 (21-32) mmol/L Anion Gap 11 (3-11) BUN 17 (6-23) mg/dl Creatinine 1.23 H (0.6-1.2) mg/dl Est Cr Clr Drug Dosing 43.5 ml/min Est GFR ( Amer) 50.7 ml/min Est GFR (Non-Af Amer) 43.8 ml/min BUN/Creatinine Ratio 13.8 (10-20) Glucose 150 H (70-99(Fasting)) mg/dl Uric Acid (2.6-7.2) mg/dl Calcium 9.8 (8.5-10.1) mg/dl Magnesium 1.5 L (1.7-2.4) mg/dl Total Bilirubin 0.3 (0.2-1.0) mg/dl Direct Bilirubin 0.1 (0-0.2) mg/dl AST 20 (13-39) U/L ALT 28 (7-52) U/L Alkaline Phosphatase 81 (34-104) U/L Troponin I < 0.03 (0-0.04) ng/ml Total Protein 8.4 H (6.0-8.3) gm/dl Albumin 4.4 (3.4-5.0) gm/dl Globulin 4.0 (2.5-4.0) gm/dl Albumin/Globulin Ratio 1.1 (0.9-2) Lipase 42 (11-82) U/L Procalcitonin < 0.05 (0-0.5) ng/ml Urine Color Urine Appearance (Clear) Urine pH (4.5-7.5) Ur Specific [place] (1.000-1.030) Urine Protein (Negative) Urine Glucose (UA) (Negative) Urine Ketones (Negative) Urine Blood (Negative) Urine Nitrite (Negative) Urine Bilirubin (Negative) Urine Urobilinogen (Negative) Ur Leukocyte Esterase (Negative) Urine WBC (Auto) (0-5) /hpf Urine RBC (Auto) (0-4) /hpf U Hyaline Cast (Auto) (0-5) /lpf U Epithel Cells (Auto) (0-5) /lpf Urine Bacteria (Auto) (Negative) Urine Crystals (None Prsent) Uric Acid Crystals (None Prsent) SARS-CoV-2, RNA, NAAT (NEGATIVE) 01/10/22 01/10/22 01/10/22 Range/Units 19:11 19:15 20:38 WBC (4.8-10.8) K/uL RBC (4.2-5.4) M/uL Hgb (12.0-16.0) g/dL Hct (37-47) % MCV (80-100) fL MCH (25-34) pg MCHC (32-36) g/dL RDW Std Deviation (36.4-46.3) fL RDW Coeff of Belk[place] (11.5-14.5) % Plt Count (130-400) K/uL MPV (7.4-10.4) fL Immature Gran % (Auto) % Neut % (Auto) % Lymph % (Auto) % [place] % (Auto) % Eos % (Auto) % Baso % (Auto) % Neut # (Auto) (1.4-6.5) K/uL Lymph # (Auto) (1.2-3.4) K/uL [place] # (Auto) (0.11-0.59) K/uL Eos # (Auto) (0-0.5) K/uL Baso # (Auto) (0-0.2) K/uL Immature Gran # (Auto) (0.00-0.02) K/uL Sodium (136-145) mmol/L Potassium (3.5-5.1) mmol/L Chloride (98-107) mmol/L Carbon Dioxide (21-32) mmol/L Anion Gap (3-11) BUN (6-23) mg/dl Creatinine (0.6-1.2) mg/dl Est Cr Clr Drug Dosing ml/min Est GFR ( Amer) ml/min Est GFR (Non-Af Amer) ml/min BUN/Creatinine Ratio (10-20) Glucose (70-99(Fasting)) mg/dl Uric Acid 5.9 (2.6-7.2) mg/dl Calcium (8.5-10.1) mg/dl Magnesium (1.7-2.4) mg/dl Total Bilirubin (0.2-1.0) mg/dl Direct Bilirubin (0-0.2) mg/dl AST (13-39) U/L ALT (7-52) U/L Alkaline Phosphatase (34-104) U/L Troponin I (0-0.04) ng/ml Total Protein (6.0-8.3) gm/dl Albumin (3.4-5.0) gm/dl Globulin (2.5-4.0) gm/dl Albumin/Globulin Ratio (0.9-2) Lipase (11-82) U/L Procalcitonin (0-0.5) ng/ml Urine Color Yellow Urine Appearance Turbid A (Clear) Urine pH 5.0 (4.5-7.5) Ur Specific [place] 1.021 (1.000-1.030) Urine Protein 2+ H (Negative) Urine Glucose (UA) Trace H (Negative) Urine Ketones Trace H (Negative) Urine Blood 3+ H (Negative) Urine Nitrite Negative (Negative) Urine Bilirubin Negative (Negative) Urine Urobilinogen Negative (Negative) Ur Leukocyte Esterase 1+ H (Negative) Urine WBC (Auto) 10-30 H (0-5) /hpf Urine RBC (Auto) 10-30 H (0-4) /hpf U Hyaline Cast (Auto) 5-10 H (0-5) /lpf U Epithel Cells (Auto) >30 H (0-5) /lpf Urine Bacteria (Auto) 2+ H (Negative) Urine Crystals Uric Acid A (None Prsent) Uric Acid Crystals Present A (None Prsent) SARS-CoV-2, RNA, NAAT NEGATIVE (NEGATIVE) Administered Medications Atorvastatin Calcium (Atorvastatin 10 Mg Tab) 10 mg PO HS ARISTIDES Stop: 02/10/22 20:59 Last Admin: 01/11/22 02:50 Dose: 10 mg Documented by: [id number] Dextrose (Dextrose 50% 50 Ml Syringe) 25 - 50 ml IV UD PRN; Protocol PRN Reason: Hypoglycemia Protocol Stop: 02/10/22 01:01 Last Admin: 01/11/22 03:06 Dose: 25 ml Documented by: [id number] Gabapentin (Gabapentin 300 Mg Cap) 300 mg PO HS ARISTIDES Stop: 02/10/22 20:59 Last Admin: 01/11/22 02:50 Dose: 300 mg Documented by: [id number] Lactated Ringer's (Lr) 1,000 mls @ 125 mls/hr IV .Q8H ARISTIDES Stop: 01/11/22 17:01 Last Admin: 01/11/22 01:20 Dose: 125 mls/hr Documented by: [id number] Ondansetron HCl (Ondansetron Inj 2 Mg/Ml 2 Ml Vial) 4 mg IV Q6H PRN PRN Reason: Nausea And Vomiting Stop: 02/10/22 01:01 Last Admin: 01/11/22 02:56 Dose: 4 mg Documented by: [id number] Discontinued Medications Sodium Chloride (Nss 1000ml) 1,000 mls @ 999 mls/hr IV .Q1H1M ONE Stop: 01/10/22 21:04 Last Infusion: 01/11/22 01:38 Dose: 0 mls/hr Documented by: [id number] Admin: 01/10/22 20:13 Dose: 999 mls/hr Documented by: [id number] Acetaminophen (Ofirmev) 1,000 mg in 100 mls @ 400 mls/hr IV NOW STA Stop: 01/10/22 20:34 Last Infusion: 01/10/22 21:22 Dose: 0 mls/hr Documented by: [id number] Admin: 01/10/22 20:28 Dose: 400 mls/hr Documented by: [id number] Magnesium Sulfate/Dextrose (Magnesium Sulfate / D5w) 1 gm in 100 mls @ 100 mls/hr IV NOW STA Stop: 01/10/22 22:24 Last Infusion: 01/11/22 01:38 Dose: 0 mls/hr Documented by: [id number] Admin: 01/10/22 23:48 Dose: 100 mls/hr Documented by: [id number] Ceftriaxone Sodium (Rocephin) 2,000 mg in 70 mls @ 140 mls/hr IV NOW STA Stop: 01/10/22 22:25 Last Infusion: 01/11/22 01:38 Dose: 0 mls/hr Documented by: [id number] Admin: 01/10/22 23:48 Dose: 140 mls/hr Documented by: [id number] Ioversol (Optiray 320 100ml) 92 ml IV ONCE ONE Stop: 01/10/22 21:03 Last Admin: 01/10/22 21:05 Dose: 92 ml Documented by: [id number] Ondansetron HCl (Ondansetron Inj 2 Mg/Ml 2 Ml Vial) Confirm Administered Dose 4 mg .ROUTE .STK-MED ONE Stop: 01/10/22 20:37 Last Admin: 01/10/22 20:40 Dose: 4 mg Documented by: [id number] Tamsulosin HCl (Tamsulosin Hcl 0.4 Mg Cap) 0.4 mg PO NOW ONE Stop: 01/11/22 01:03 Last Admin: 01/11/22 02:49 Dose: 0.4 mg Documented by: [id number] Imaging Data Radiologist's Impression: STATRAD: Preliminary report Moderate left hydroureteronephrosis and perinephric edema secondary to 1mm obstructing stone in the left distal ureter near the UVJ. Discharge Plan Visit Data Chief Complaint: Abdominal Pain Discharge Problem: Ureterolithiasis, Leukocytosis, Hydronephrosis due to obstruction of ureter, Urinary tract infection, Hypomagnesemia Patient Disposition: Admitted As Inpatient Discharge Instructions Interventions: ED Discharge Assessment Last Done: 01/11/22 00:39 Discharge Problem: Leukocytosis Qualifiers: Leukocytosis type: unspecified Qualified Code(s): D72.829 - Elevated white blood cell count, unspecified Urinary tract infection Qualifiers: Urinary tract infection type: site unspecified Hematuria presence: with hematuria Qualified Code(s): N39.0 - Urinary tract infection, site not specified
[2022-01-11 06:26] LABS: Hemoglobin 13.2 g/dL (12.0-16.0); Mean Corpuscular Hemoglobin 26.1 pg (25-34); Mean Corpuscular Hgb Conc 31.4 g/dL (32-36); Mean Corpuscular Volume 83.2 fL (80-100); Mean Platelet Volume 9.8 fL (7.4-10.4); Platelet Count 355 K/uL (130-400); RDW Coefficient of Variation 15.4 % (11.5-14.5); RDW Standard Deviation 46.3 fL (36.4-46.3); Red Blood Count 5.05 M/uL (4.2-5.4); White Blood Count 24.02 K/uL (4.8-10.8)
[2022-01-11] MEDS: LEVOTHYROXINE SODIUM 50 MCG TABLET PO SCH (06:36)
[2022-01-11] MEDS: INSULIN ASPART PER UNIT SC SCH ×4 (06:38→20:37)
[2022-01-11 06:44] LABS: BUN Creatinine Ratio 10.7 (10-20); Calcium 9.5 mg/dl (8.5-10.1); Creatinine Clr Calc Pharmacy 35.5 ml/min; Est GFR (African American) 40.2 ml/min; Est GFR (Non-African American) 34.7 ml/min; Potassium 4.4 mmol/L (3.5-5.1)
[2022-01-11 06:54] LABS: Basophils # (auto) 0.03 K/uL (0-0.2); Basophils % (auto) 0.1 %; Immature Granulocytes # (auto) 0.08 K/uL (0.00-0.02); Immature Granulocytes % (auto) 0.3 %; Lymphocytes # (auto) 1.75 K/uL (1.2-3.4); Lymphocytes % (auto) 7.3 %; Monocytes # (auto) 1.32 K/uL (0.11-0.59); Monocytes % (auto) 5.5 %; Neutrophils # (auto) 20.84 K/uL (1.4-6.5); Neutrophils % (auto) 86.8 %; RBC Morphology Unremarkable
[2022-01-11] MEDS ORDERED: INSULIN ASPART PER UNIT SC SCH (07:30)
[2022-01-11] MEDS: cloNIDine HCL 0.1 MG TAB PO SCH ×2 (07:57→20:38)
[2022-01-11] MEDS: PANTOprazole 40 MG TAB PO SCH (07:57)
--- NOTE | 2022-01-11 08:13 | CT Scan Report ---
CT abd pelvis IV con only CLINICAL HISTORY: LLQ abd pain TECHNIQUE: Helical axial images of the abdomen and pelvis were obtained and displayed. Automated dose lowering techniques and/or adjustment according to patient size were utilized for this exam. This e xam was performed with intravenous contrast. COMPARISON: None available at the time of this dictation. FINDINGS: Lower chest: Bibasilar atelectasis versus scarring is seen. There is a 5 mm nodule incidentally note d in the right middle lobe. Liver: Hepatic steatosis is noted. Gallbladder and biliary tree: Patient is status post cholecystectomy. No intra- or extrahepatic bilia ry ductal dilation. Pancreas: Unremarkable, no focal lesions. Spleen: Unremarkable. Adrenals: Unremarkable. Kidneys and ureters: There is a 3 mm stone in the left ureterovesicular junction with associated left hydroureteronephrosis. Bladder: Unremarkable. Reproductive organs: Unremarkable. Bowel: Unremarkable appearance of the bowel. The appendix is normal. Lymph nodes Retroperitoneal: Unremarkable. Mesenteric: Unremarkable. Pelvic: Unremarkable. Peritoneum: Normal. Vessels: Unremarkable. Abdominal wall: A fat-containing umbilical hernia is seen. Bones: Degenerative changes in the visualized spine. IMPRESSION: 1. Obstructive left nephrolithiasis at the ureterovesicular junction with resulting hydroureteroneph rosis. 2. 5 mm right middle lobe nodule. If not previously evaluated, follow-up CT chest can be performed. 3. Hepatic steatosis. ACT 112: Negative or not required by law. Electronically signed by: Shola Garcia M.D. 01/11/2022 8:12 AM
--- NOTE | 2022-01-11 08:26 | Hospitalist Progress Note ---
Date of Service January 11, 2022 Assessment & Plan (1) Renal stone: Plan: 71yo female with one day of severe left flank pain, nausea. Found to have obstructing stone in left ureter, 1mm in size with associated hydroureteronephrosis and perinephric stranding. UA with possible infection - bacteria present as well as LE/WBCs and blood. Also with Uric Acid crystals - ?uric acid stone. Patient with history of MGUS/Essential thrombocytosis, chronically elevated WBC count CTAP: Obstructive left nephrolithiasis at the ureterovesicular junction with resulting hydroureteronephrosis. NPO Urology consulted ?stone studies may be helpful -- uric acid noted on ua Continue flomax HS, strain urine Zofran prn nausea, tylenol and morphine prn pain Continue ceftriaxone 2gm IV daily Follow urine/blood cultures Continue LR @ 125cc/hr Lactic 2.6--> 2.6 and will repeat/bolus if needed --> repeat lactic 1.1 Mag 1.5 in ER, given 1gm IV and will repeat with am labs. --> Mag 1.6 and additional 2gm IV ordered Hold lisinopril for elevated Cr --> she already was given dose this morning and would hold post-op until BP/kidney function evaluated on AM labs (2) Diabetes type 2, uncontrolled: Plan: Chronic. Well controlled. Last [id number]=8.3 on 09/26/21 -Lantus 8u BID for now -ISS -Goal blood sugar 100 - 140 Had episode of hypoglycemia this morning, was feeling a little shaky. Improved with intervention but will consult pharmacy for glycemic management (3) Hypertension: Plan: Elevated blood pressure, history of HTN Pain control as above Continue Clonidine 0.2mg po BID -Continue Lisinopril 40mg po daily --PLACED ON HOLD for elevated Cr 1.49 from 1.23 with obsturcting stone Order for hydralazine entered prn HTN Continue to monitor (4) Dyslipidemia: Plan: Chronic. On medications -Continue Atorvastatin 10mg po qHS (5) Hypothyroidism: Plan: Chronic. Elevated TSH on last check TSH wnl 1.386 -Continue Synthroid 50mcg po daily (6) GERD (gastroesophageal reflux disease): Plan: Chronic. Well controlled on medications -Continue Protonix 40mg po daily (7) Chronic kidney disease, stage 3 (moderate): Plan: BUN and Cr near baseline -Avoid nephrotoxic agents -Monitor UOP, BUN/Cr and electroltyes (8) Pulmonary nodule: Plan: On CTAP on admission -- 5 mm right middle lobe nodule. If not previously evaluated, follow-up CT chest can be performed. Can be done on outpatient basis but does have fam hx (9) Hypomagnesemia: Plan: mag 1.5 on labs in ER, given 1gm IV Will repeat this morning/additional replacement as needed --> 2 additional gm IV ordered for mag 1.6 Had reported LE pain/hx neuropathy and recently started on gabapentin several months ago (Doppler NEGATIVE for DVT at that time) Will also check B12 level (on 1000 PO daily supplementation) to ensure no increased supplementation needed as she decreased self 2x/weekly-- wnl Plan: F/E/N - LR at 125mL/hr x 2 liters, monitor electroltyes, NPO for now Ppx - SCDs Code - DNR/DNI per discusison with patient NPO for OR for cysto with urology Admission and Anticipated Discharge Date Admission Date: January 10, 2022 Subjective Patient evaluated this morning. States no pain currently, just got tylenol. No fevers, flank pain at present. Did just get up to void, no noticing of stones passed. Denies passing gas but +BS. On daily iron, [facility] and gets labs every 3mo. concerns for a blood dyscrasia vs MM however no formal diagnosis. Typically states BMs every 2 or so days, last yesterday morning. Will try dulc olax after cysto/stent. She did note last night she took insulin but didn't eat, low BSgs this morning and felt a little shaky. Not able to tolerate. Did get in IV and resolution of symptoms. Does have LE neuropathy. Discussed low mag on admit, given 1 gm but repeating this morning and will order additional if needed. Had been on daily B12 but level high in past and she decreased taking to 2x/week. No fever, chills, chest pain, shortness of breath, nausea or vomiting at this time. Lengthy time at bedside for emotional support. Discussed incidental finding of pulmonary nodule. No smoking hx/weight loss/night sweats. Brother from lung ca. Other family members with hx breast ca. No increased depression/anxiety or need for additional medication at this time. Review of Systems Review of Systems: All systems reviewed & are unremarkable except as noted in HPI & below Physical Exam Physical Exam: General: WD/WN female resting in bed upon arrival, no acute distress ENT: slightly dry mm, trachea midline without JVD, poor dentition/several cracked and chipped teeth CV: RRR (rate 99bpm), no m/r/g, no edema, pulses palpable Resp: CTAB, diminished in bases, no w/c/r, on room air, able to talk in complete sentences GI: +BS throughout, soft, nontender : no jennings, NO CVA tenderness Psych/Neuro: alert, oriented x 3, pleasant and cooperative but anxious/sad when talking about prior family members passing over the years follows commands, answering questions appropriately, no facial droop or slurred speech. CN intact grossly Results & Data Results & Data ([facility]) Vital Signs (Past 12 Hours) Vital Signs Temp Pulse Pulse Resp BP BP Pulse Ox 01/11/22 05:33 36.6 C 75 16 182/79 H 96 01/11/22 01:02 36.4 C L 65 18 190/76 H 96 01/11/22 00:03 96 01/11/22 00:00 85 16 173/85 H 96 01/10/22 23:32 74 15 96 01/10/22 23:02 75 18 01/10/22 22:33 85 17 98 01/10/22 22:00 68 14 192/83 H 98 01/10/22 21:32 75 16 97 01/10/22 21:09 85 14 98 01/10/22 20:49 82 18 185/84 H 94 01/10/22 20:32 74 14 99 Laboratory Results 01/11/22 01/11/22 01/11/22 Range/Units 05:59 05:26 05:26 WBC (4.8-10.8) K/uL RBC (4.2-5.4) M/uL Hgb (12.0-16.0) g/dL Hct (37-47) % MCV (80-100) fL MCH (25-34) pg MCHC (32-36) g/dL RDW Std Deviation (36.4-46.3) fL RDW Coeff of Belkis (11.5-14.5) % Plt Count (130-400) K/uL MPV (7.4-10.4) fL Immature Gran % (Auto) % Neut % (Auto) % Lymph % (Auto) % Clark % (Auto) % Eos % (Auto) % Baso % (Auto) % Neut # (Auto) (1.4-6.5) K/uL Lymph # (Auto) (1.2-3.4) K/uL Clark # (Auto) (0.11-0.59) K/uL Eos # (Auto) (0-0.5) K/uL Baso # (Auto) (0-0.2) K/uL Immature Gran # (Auto) (0.00-0.02) K/uL RBC Morphology Sodium 138 (136-145) mmol/L Potassium 4.4 (3.5-5.1) mmol/L Chloride 103 (98-107) mmol/L Carbon Dioxide 25 (21-32) mmol/L Anion Gap 10 (3-11) BUN 16 (6-23) mg/dl Creatinine 1.49 H (0.6-1.2) mg/dl Est Cr Clr Drug Dosing 35.5 ml/min Est GFR ( Amer) 40.2 ml/min Est GFR (Non-Af Amer) 34.7 ml/min BUN/Creatinine Ratio 10.7 (10-20) Glucose 115 H (70-99(Fasting)) mg/dl POC Glucose 116 H (70-99) mg/dl Lactate (0.4-2.0) mmol/L Uric Acid (2.6-7.2) mg/dl Calcium 9.5 (8.5-10.1) mg/dl Magnesium (1.7-2.4) mg/dl Total Bilirubin (0.2-1.0) mg/dl Direct Bilirubin (0-0.2) mg/dl AST (13-39) U/L ALT (7-52) U/L Alkaline Phosphatase (34-104) U/L Troponin I (0-0.04) ng/ml Total Protein (6.0-8.3) gm/dl Albumin (3.4-5.0) gm/dl Globulin (2.5-4.0) gm/dl Albumin/Globulin Ratio (0.9-2) Lipase (11-82) U/L Procalcitonin (0-0.5) ng/ml TSH 1.386 (0.300-4.500) uIu/ml Urine Color Urine Appearance (Clear) Urine pH (4.5-7.5) Ur Specific [place] (1.000-1.030) Urine Protein (Negative) Urine Glucose (UA) (Negative) Urine Ketones (Negative) Urine Blood (Negative) Urine Nitrite (Negative) Urine Bilirubin (Negative) Urine Urobilinogen (Negative) Ur Leukocyte Esterase (Negative) Urine WBC (Auto) (0-5) /hpf Urine RBC (Auto) (0-4) /hpf U Hyaline Cast (Auto) (0-5) /lpf U Epithel Cells (Auto) (0-5) /lpf Urine Bacteria (Auto) (Negative) Urine Crystals (None Prsent) Uric Acid Crystals (None Prsent) SARS-CoV-2, RNA, NAAT (NEGATIVE) 01/11/22 01/11/22 01/11/22 Range/Units 05:26 03:30 03:00 WBC 24.02 H (4.8-10.8) K/uL RBC 5.05 (4.2-5.4) M/uL Hgb 13.2 (12.0-16.0) g/dL Hct 42.0 (37-47) % MCV 83.2 (80-100) fL MCH 26.1 (25-34) pg MCHC 31.4 L (32-36) g/dL RDW Std Deviation 46.3 (36.4-46.3) fL RDW Coeff of Belkis 15.4 H (11.5-14.5) % Plt Count 355 (130-400) K/uL MPV 9.8 (7.4-10.4) fL Immature Gran % (Auto) 0.3 % Neut % (Auto) 86.8 % Lymph % (Auto) 7.3 % Clark % (Auto) 5.5 % Eos % (Auto) 0.0 % Baso % (Auto) 0.1 % Neut # (Auto) 20.84 H (1.4-6.5) K/uL Lymph # (Auto) 1.75 (1.2-3.4) K/uL Clark # (Auto) 1.32 H (0.11-0.59) K/uL Eos # (Auto) 0.00 (0-0.5) K/uL Baso # (Auto) 0.03 (0-0.2) K/uL Immature Gran # (Auto) 0.08 H (0.00-0.02) K/uL RBC Morphology Unremarkable Sodium (136-145) mmol/L Potassium (3.5-5.1) mmol/L Chloride (98-107) mmol/L Carbon Dioxide (21-32) mmol/L Anion Gap (3-11) BUN (6-23) mg/dl Creatinine (0.6-1.2) mg/dl Est Cr Clr Drug Dosing ml/min Est GFR ( Amer) ml/min Est GFR (Non-Af Amer) ml/min BUN/Creatinine Ratio (10-20) Glucose (70-99(Fasting)) mg/dl POC Glucose 138 H 67 L* (70-99) mg/dl Lactate (0.4-2.0) mmol/L Uric Acid (2.6-7.2) mg/dl Calcium (8.5-10.1) mg/dl Magnesium (1.7-2.4) mg/dl Total Bilirubin (0.2-1.0) mg/dl Direct Bilirubin (0-0.2) mg/dl AST (13-39) U/L ALT (7-52) U/L Alkaline Phosphatase (34-104) U/L Troponin I (0-0.04) ng/ml Total Protein (6.0-8.3) gm/dl Albumin (3.4-5.0) gm/dl Globulin (2.5-4.0) gm/dl Albumin/Globulin Ratio (0.9-2) Lipase (11-82) U/L Procalcitonin (0-0.5) ng/ml TSH (0.300-4.500) uIu/ml Urine Color Urine Appearance (Clear) Urine pH (4.5-7.5) Ur Specific [place] (1.000-1.030) Urine Protein (Negative) Urine Glucose (UA) (Negative) Urine Ketones (Negative) Urine Blood (Negative) Urine Nitrite (Negative) Urine Bilirubin (Negative) Urine Urobilinogen (Negative) Ur Leukocyte Esterase (Negative) Urine WBC (Auto) (0-5) /hpf Urine RBC (Auto) (0-4) /hpf U Hyaline Cast (Auto) (0-5) /lpf U Epithel Cells (Auto) (0-5) /lpf Urine Bacteria (Auto) (Negative) Urine Crystals (None Prsent) Uric Acid Crystals (None Prsent) SARS-CoV-2, RNA, NAAT (NEGATIVE) 01/11/22 01/11/22 01/10/22 Range/Units 01:39 00:49 22:55 WBC (4.8-10.8) K/uL RBC (4.2-5.4) M/uL Hgb (12.0-16.0) g/dL Hct (37-47) % MCV (80-100) fL MCH (25-34) pg MCHC (32-36) g/dL RDW Std Deviation (36.4-46.3) fL RDW Coeff of Belkis (11.5-14.5) % Plt Count (130-400) K/uL MPV (7.4-10.4) fL Immature Gran % (Auto) % Neut % (Auto) % Lymph % (Auto) % Clark % (Auto) % Eos % (Auto) % Baso % (Auto) % Neut # (Auto) (1.4-6.5) K/uL Lymph # (Auto) (1.2-3.4) K/uL Clark # (Auto) (0.11-0.59) K/uL Eos # (Auto) (0-0.5) K/uL Baso # (Auto) (0-0.2) K/uL Immature Gran # (Auto) (0.00-0.02) K/uL RBC Morphology Sodium (136-145) mmol/L Potassium (3.5-5.1) mmol/L Chloride (98-107) mmol/L Carbon Dioxide (21-32) mmol/L Anion Gap (3-11) BUN (6-23) mg/dl Creatinine (0.6-1.2) mg/dl Est Cr Clr Drug Dosing ml/min Est GFR ( Amer) ml/min Est GFR (Non-Af Amer) ml/min BUN/Creatinine Ratio (10-20) Glucose (70-99(Fasting)) mg/dl POC Glucose 81 (70-99) mg/dl Lactate 2.6 H* 2.6 H* (0.4-2.0) mmol/L Uric Acid (2.6-7.2) mg/dl Calcium (8.5-10.1) mg/dl Magnesium (1.7-2.4) mg/dl Total Bilirubin (0.2-1.0) mg/dl Direct Bilirubin (0-0.2) mg/dl AST (13-39) U/L ALT (7-52) U/L Alkaline Phosphatase (34-104) U/L Troponin I (0-0.04) ng/ml Total Protein (6.0-8.3) gm/dl Albumin (3.4-5.0) gm/dl Globulin (2.5-4.0) gm/dl Albumin/Globulin Ratio (0.9-2) Lipase (11-82) U/L Procalcitonin (0-0.5) ng/ml TSH (0.300-4.500) uIu/ml Urine Color Urine Appearance (Clear) Urine pH (4.5-7.5) Ur Specific [place] (1.000-1.030) Urine Protein (Negative) Urine Glucose (UA) (Negative) Urine Ketones (Negative) Urine Blood (Negative) Urine Nitrite (Negative) Urine Bilirubin (Negative) Urine Urobilinogen (Negative) Ur Leukocyte Esterase (Negative) Urine WBC (Auto) (0-5) /hpf Urine RBC (Auto) (0-4) /hpf U Hyaline Cast (Auto) (0-5) /lpf U Epithel Cells (Auto) (0-5) /lpf Urine Bacteria (Auto) (Negative) Urine Crystals (None Prsent) Uric Acid Crystals (None Prsent) SARS-CoV-2, RNA, NAAT (NEGATIVE) 01/10/22 01/10/22 01/10/22 Range/Units 20:38 19:15 19:11 WBC (4.8-10.8) K/uL RBC (4.2-5.4) M/uL Hgb (12.0-16.0) g/dL Hct (37-47) % MCV (80-100) fL MCH (25-34) pg MCHC (32-36) g/dL RDW Std Deviation (36.4-46.3) fL RDW Coeff of Belkis (11.5-14.5) % Plt Count (130-400) K/uL MPV (7.4-10.4) fL Immature Gran % (Auto) % Neut % (Auto) % Lymph % (Auto) % Clark % (Auto) % Eos % (Auto) % Baso % (Auto) % Neut # (Auto) (1.4-6.5) K/uL Lymph # (Auto) (1.2-3.4) K/uL Clark # (Auto) (0.11-0.59) K/uL Eos # (Auto) (0-0.5) K/uL Baso # (Auto) (0-0.2) K/uL Immature Gran # (Auto) (0.00-0.02) K/uL RBC Morphology Sodium (136-145) mmol/L Potassium (3.5-5.1) mmol/L Chloride (98-107) mmol/L Carbon Dioxide (21-32) mmol/L Anion Gap (3-11) BUN (6-23) mg/dl Creatinine (0.6-1.2) mg/dl Est Cr Clr Drug Dosing ml/min Est GFR ( Amer) ml/min Est GFR (Non-Af Amer) ml/min BUN/Creatinine Ratio (10-20) Glucose (70-99(Fasting)) mg/dl POC Glucose (70-99) mg/dl Lactate (0.4-2.0) mmol/L Uric Acid 5.9 (2.6-7.2) mg/dl Calcium (8.5-10.1) mg/dl Magnesium (1.7-2.4) mg/dl Total Bilirubin (0.2-1.0) mg/dl Direct Bilirubin (0-0.2) mg/dl AST (13-39) U/L ALT (7-52) U/L Alkaline Phosphatase (34-104) U/L Troponin I (0-0.04) ng/ml Total Protein (6.0-8.3) gm/dl Albumin (3.4-5.0) gm/dl Globulin (2.5-4.0) gm/dl Albumin/Globulin Ratio (0.9-2) Lipase (11-82) U/L Procalcitonin (0-0.5) ng/ml TSH (0.300-4.500) uIu/ml Urine Color Yellow Urine Appearance Turbid A (Clear) Urine pH 5.0 (4.5-7.5) Ur Specific [place] 1.021 (1.000-1.030) Urine Protein 2+ H (Negative) Urine Glucose (UA) Trace H (Negative) Urine Ketones Trace H (Negative) Urine Blood 3+ H (Negative) Urine Nitrite Negative (Negative) Urine Bilirubin Negative (Negative) Urine Urobilinogen Negative (Negative) Ur Leukocyte Esterase 1+ H (Negative) Urine WBC (Auto) 10-30 H (0-5) /hpf Urine RBC (Auto) 10-30 H (0-4) /hpf U Hyaline Cast (Auto) 5-10 H (0-5) /lpf U Epithel Cells (Auto) >30 H (0-5) /lpf Urine Bacteria (Auto) 2+ H (Negative) Urine Crystals Uric Acid A (None Prsent) Uric Acid Crystals Present A (None Prsent) SARS-CoV-2, RNA, NAAT NEGATIVE (NEGATIVE) 01/10/22 01/10/22 01/10/22 Range/Units 19:11 19:11 19:11 WBC 18.42 H (4.8-10.8) K/uL RBC 5.09 (4.2-5.4) M/uL Hgb 13.4 (12.0-16.0) g/dL Hct 42.2 (37-47) % MCV 82.9 (80-100) fL MCH 26.3 (25-34) pg MCHC 31.8 L (32-36) g/dL RDW Std Deviation 45.9 (36.4-46.3) fL RDW Coeff of Belkis 15.1 H (11.5-14.5) % Plt Count 400 (130-400) K/uL MPV 9.7 (7.4-10.4) fL Immature Gran % (Auto) 0.3 % Neut % (Auto) 82.4 % Lymph % (Auto) 11.2 % Clark % (Auto) 5.1 % Eos % (Auto) 0.9 % Baso % (Auto) 0.1 % Neut # (Auto) 15.19 H (1.4-6.5) K/uL Lymph # (Auto) 2.06 (1.2-3.4) K/uL Clark # (Auto) 0.94 H (0.11-0.59) K/uL Eos # (Auto) 0.16 (0-0.5) K/uL Baso # (Auto) 0.02 (0-0.2) K/uL Immature Gran # (Auto) 0.05 H (0.00-0.02) K/uL RBC Morphology Sodium 139 (136-145) mmol/L Potassium 3.9 (3.5-5.1) mmol/L Chloride 104 (98-107) mmol/L Carbon Dioxide 24 (21-32) mmol/L Anion Gap 11 (3-11) BUN 17 (6-23) mg/dl Creatinine 1.23 H (0.6-1.2) mg/dl Est Cr Clr Drug Dosing 43.5 ml/min Est GFR ( Amer) 50.7 ml/min Est GFR (Non-Af Amer) 43.8 ml/min BUN/Creatinine Ratio 13.8 (10-20) Glucose 150 H (70-99(Fasting)) mg/dl POC Glucose (70-99) mg/dl Lactate (0.4-2.0) mmol/L Uric Acid (2.6-7.2) mg/dl Calcium 9.8 (8.5-10.1) mg/dl Magnesium 1.5 L (1.7-2.4) mg/dl Total Bilirubin 0.3 (0.2-1.0) mg/dl Direct Bilirubin 0.1 (0-0.2) mg/dl AST 20 (13-39) U/L ALT 28 (7-52) U/L Alkaline Phosphatase 81 (34-104) U/L Troponin I < 0.03 (0-0.04) ng/ml Total Protein 8.4 H (6.0-8.3) gm/dl Albumin 4.4 (3.4-5.0) gm/dl Globulin 4.0 (2.5-4.0) gm/dl Albumin/Globulin Ratio 1.1 (0.9-2) Lipase 42 (11-82) U/L Procalcitonin < 0.05 (0-0.5) ng/ml TSH (0.300-4.500) uIu/ml Urine Color Urine Appearance (Clear) Urine pH (4.5-7.5) Ur Specific [place] (1.000-1.030) Urine Protein (Negative) Urine Glucose (UA) (Negative) Urine Ketones (Negative) Urine Blood (Negative) Urine Nitrite (Negative) Urine Bilirubin (Negative) Urine Urobilinogen (Negative) Ur Leukocyte Esterase (Negative) Urine WBC (Auto) (0-5) /hpf Urine RBC (Auto) (0-4) /hpf U Hyaline Cast (Auto) (0-5) /lpf U Epithel Cells (Auto) (0-5) /lpf Urine Bacteria (Auto) (Negative) Urine Crystals (None Prsent) Uric Acid Crystals (None Prsent) SARS-CoV-2, RNA, NAAT (NEGATIVE) Diagnostic Findings Abdomen/Pelvis CT 01/10/22 20:20 CT abd pelvis IV con only CLINICAL HISTORY: LLQ abd pain TECHNIQUE: Helical axial images of the abdomen and pelvis were obtained and displayed. Automated dose lowering techniques and/or adjustment according to patient size were utilized for this exam. This exam was performed with intravenous contrast. COMPARISON: None available at the time of this dictation. FINDINGS: Lower chest: Bibasilar atelectasis versus scarring is seen. There is a 5 mm nodule incidentally noted in the right middle lobe. Liver: Hepatic steatosis is noted. Gallbladder and biliary tree: Patient is status post cholecystectomy. No intra- or extrahepatic biliary ductal dilation. Pancreas: Unremarkable, no focal lesions. Spleen: Unremarkable. Adrenals: Unremarkable. Kidneys and ureters: There is a 3 mm stone in the left ureterovesicular junction with associated left hydroureteronephrosis. Bladder: Unremarkable. Reproductive organs: Unremarkable. Bowel: Unremarkable appearance of the bowel. The appendix is normal. Lymph nodes Retroperitoneal: Unremarkable. Mesenteric: Unremarkable. Pelvic: Unremarkable. Peritoneum: Normal. Vessels: Unremarkable. Abdominal wall: A fat-containing umbilical hernia is seen. Bones: Degenerative changes in the visualized spine. IMPRESSION: 1. Obstructive left nephrolithiasis at the ureterovesicular junction with resulting hydroureteronephrosis. 2. 5 mm right middle lobe nodule. If not previously evaluated, follow-up CT chest can be performed. 3. Hepatic steatosis. ACT 112: Negative or not required by law. Electronically signed by: Shola Garcia M.D. 01/11/2022 8:12 AM Chest X-Ray 01/11/22 08:46 XR chest 1V portable CLINICAL HISTORY: pre-op, pulm nodule on CT. Evaluate cardiac pulmonary status COMPARISON STUDY: No previous studies for comparison. TECHNIQUE: 1 view of the chest FINDINGS: Single frontal view of the chest demonstrates the cardiomediastinal silhouette to be within normal limits. No definite pulmonary nodules identified radiographically. The lungs are clear of alveolar opacities. There is no evidence for pleural effusion. There is no evidence for vascular congestion. There is no acute osseous pathology. IMPRESSION: 1. No acute cardiopulmonary disease. ACT 112: Negative or not required by law. Electronically signed by: Bolivar Akhtar M.D. 01/11/2022 10:04 AM PG Care Time/CCT Total # of Minutes Spent Total Time Spent with Patient: Total time spent is greater than 50% in coordination of care (as documented) at patient's floor/unit and/or counseling patient: Coding Level of Care Code 79695 Subseq Hosp Care Lvl 3 Diagnoses Renal stone N20.0 Diabetes type 2, uncontrolled E11.65 Hypertension I10 Dyslipidemia E78.5 Hypothyroidism E03.9 GERD (gastroesophageal reflux disease) K21.9 Chronic kidney disease, stage 3 (moderate) N18.3 Pulmonary nodule R91.1 Hypomagnesemia E83.42
--- NOTE | 2022-01-11 08:30 | Urology Consultation ---
Date of Consultation January 11, 2022 Assessment & Plan (1) Ureterolithiasis: (2) Hydronephrosis due to obstruction of ureter: (3) Urinary tract infection: 71 yo F with multiple comorbidities admitted for leukocytosis, left flank pain secondary to distal left ureteral stone, and suspected UTI. - Plan of care reviewed with Dr. Ortega, urologist auto air conditioning apprentice. - Patient afebrile, nontoxic. - Lab work reviewed - creatinine increased to 1.49, WBC up to 24.02 today. - Urine and blood cultures pending - currently on IV Ceftriaxone, follow cultures. - CTAP notable for 3 mm left UVJ stone with resulting left hydroureteronephrosis. - Given leukocytosis, elevated creatinine, and suspected UTI, recommend placement of left ureteral stent today. - Ureteral stents were discussed as well as expected clinical course. - Discussed need for stone treatment at a later date after acute infection has been treated. - She is agreeable to the plan, all questions answered. - Proceed with cystoscopy and left ureteral stent placement today. - Risks and benefits of procedure to be reviewed with patient by surgeon. OR notified. - Will cover with scheduled IV Ceftriaxone preoperatively. - Keep NPO for procedure. - Continue to strain all urine, contact urology if stone passes in the interim. Recommend send stone for analysis if she passes it. - Continue supportive care, antibiotics, and management per primary service. Please consult our service urgently if patient develops fever >101F, intractable pain or nausea, as this will necessitate urgent surgical intervention. Thank you for the consultation and we will continue to monitor closely with primary service. Supervising Physician Co-Signing Physician Notes Discussed patient with HUA. Agree with plan. Left hydronephrosis with small calcification in left distal ureteral and concern for infection. To OR for left ureteral stent placement today. History of Present Illness Reason for Consultation: renal stone Requesting Physician: Dr. Levy Attending Physician: Guzman Muro History of Present Illness 71 yo F with past medical history significant for hypertension, MGUS, hypothyroidism, CKD stage 3, type 2 diabetes, dyslipidemia, and GERD admitted for leukocytosis, suspected UTI, and left flank pain secondary to distal left ureteral stone. Patient presented to [facility] ED on 01/10/22 with complaint of left flank/abdominal pain, nausea, and chills. On arrival, she was afebrile. Lab work independently reviewed and demonstrated leukocytosis of 18.42, creatinine 1.23, hemoglobin 13.4, and lactate 2.6. Urinalysis notable for 3+ blood, 1+ leukocytes, 10-30 WBCs, 10-30 RBCs, >30 Epithelials, 2+ bacteria, and uric acid crystals present. CTAP with IV contrast obtained. CT imaging reviewed and notes a 3 mm stone at the left UVJ, with resulting left hydroureteronephrosis. ED course included IV fluids, Ceftriaxone, Ondansetron, Acetaminophen, Tamsulosin, Magnesium. She was admitted to the hospital medicine service. Urology service consulted for ureteral stone. Chart review: Afebrile Creatinine 1.49 WBC 24.02 Urine culture pending Blood cultures pending On IV Ceftriaxone Patient seen and examined at bedside this AM. She is resting in bed. Subjectively feeling better since arrival. Denies stone passage. She reports intermittent left flank pain radiating to left lower quadrant, currently well controlled after receiving Tylenol this AM. Reports nausea, no vomiting. Voiding spontaneously without difficulty. No dysuria or hematuria. No fever or chills. Currently NPO. No chest pain or shortness of breath. Offers no additional c omplaints. No prior hx of stones. Reports family hx of stones - father. No prior urology evaluations. Allergies Allergy/AdvReac Type Severity Reaction Status Date / Time amlodipine AdvReac Mild lower leg Verified 01/11/22 13:11 swelling Home Medications Medication Instructions Recorded Confirmed Type calcium carbonate 600 mg-vitamin 1 tab PO BID #90 tab 03/29/19 01/10/22 Rx D3 10 mcg (400 unit) tablet (Calcium 600 + D(3)) insulin syringe-needle U-100 1 mL #90 ea 03/31/19 01/10/22 Rx 31 gauge x 5/16" (BD Insulin Syringe Ultra-Fine) cyanocobalamin (vitamin B-12) 1,000 mcg PO .COMPLEX tab 04/29/19 01/10/22 History 1,000 mcg tablet pen needle, diabetic 32 gauge x #300 ea 11/07/19 01/10/22 Rx 5/32" (BD Ultra-Fine Mariama Pen Needle) ferrous sulfate 325 mg (65 mg 325 mg PO BID 08/31/20 01/10/22 History iron) tablet pantoprazole 40 mg tablet,delayed 40 mg PO DAILY #90 tab 06/14/21 01/10/22 Rx release lisinopril 40 mg tablet 40 mg PO DAILY #90 tab 06/15/21 01/10/22 Rx metformin 1,000 mg tablet 1,000 mg PO BID #180 tab 06/15/21 01/10/22 Rx gabapentin 300 mg capsule 300 mg PO HS #90 cap 08/19/21 01/10/22 Rx clonidine HCl 0.2 mg tablet 0.2 mg PO BID #180 tab 09/09/21 01/10/22 Rx diclofenac sodium 1 % topical gel 2 g TOP QID PRN #100 gm 09/09/21 01/10/22 Rx levothyroxine 50 mcg tablet 50 mcg PO DAILY #30 tab 09/27/21 01/10/22 Rx insulin lispro protamine-lispro See Rx Instructions SQ TID #45 ml 12/28/21 01/10/22 Rx 100 unit/mL (75-25) subcutaneous pen (Humalog Mix 75-25 KwikPen) blood sugar diagnostic (FreeStyle #100 ea 01/05/22 01/10/22 Rx Lite Strips) blood-glucose meter (FreeStyle #1 ea 01/05/22 01/10/22 Rx Lite Meter) lancets 28 gauge (FreeStyle #100 ea 01/05/22 01/10/22 Rx Lancets) atorvastatin 10 mg tablet 10 mg PO HS 01/10/22 01/10/22 History Patient History Medical History Chronic kidney disease, stage 3 (moderate) Diabetes type 2, uncontrolled Diabetic nephropathy Dyslipidemia Essential thrombocytosis GERD (gastroesophageal reflux disease) History of gastric ulcer Hypothyroidism Iron deficiency anemia JAK2 gene mutation Leukocytosis Microalbuminuria Monoclonal gammopathy of unknown significance (MGUS) Neuropathy Osteoarthritis of right hip Tachycardia Surgical History H/O colonoscopy H/O endoscopy History of cholecystectomy S/P tonsillectomy Family History Father Heart disease Hypertension Family history of cardiac disorder Family history of gallbladder disease Brother Diabetes Lung cancer Mother , February 2021 Diabetes Family history of gallbladder disease Denies family history of Family history of colon cancer Ovarian cancer Prostate cancer Myocardial infarction Breast cancer Social History Smoking Status: Never smoker Second Hand Exposure: No; Hx Alcohol Use: No Hx Substance Use: No Preferred Language: Syriac Communication Ability: Effective Visual Impairment: Limited Hearing Ability: Normal Instrument Repair Supervisor Required: No Beliefs That Will Affect Care: None marital status: Current Living Situation: Spouse Current Living Situation Comment: current occupational status: retired How many Children do You have: 4 Other Information That Helps Us Care for You: No Feels Safe at Home: Yes Safety Concerns: Feels Safe At This Time Childhood Exposure to Second-Hand Smoke: No Diet Comment: regular caffeine: Yes (tea in morning) during the past year weight has: remained stable Dental Care, Regularly: No Physical Activity Frequency: Does not Exercise Seatbelt Use: never Sunscreen Use: No Assistive Devices: Walker Review of Systems Constitutional: as per Subjective / HPI Eyes: no problem reported Ear, Nose, Mouth, Throat: no problem reported Respiratory: no dyspnea Cardiovascular: no chest pain Gastrointestinal: as per Subjective / HPI Genitourinary: as per Subjective / HPI Musculoskeletal: no problem reported Integumentary: no problem reported Neurologic: no problem reported Psychiatric: no problem reported Physical Exam Constitutional: well developed, well nourished and + obese; no acute distress and not ill appearing Eyes: no scleral abnormality Neck: normal visual inspection Respiratory: normal respiratory effort and able to speak in complete sentences; no respiratory distress and no labored breathing Cardiovascular: Extremities: no pedal edema Gastrointestinal (Abdomen): Inspection/Auscultation: abdomen normal to inspection; abdomen not distended Percussion/Palpation: abdomen soft; abdomen nontender and no guarding Musculoskeletal: Head/Neck/Chest: normocephalic and head atraumatic Skin: no visible rashes Neurologic: moves all extremities and awake Psychiatric: Orientation: alert, oriented x 3 and cooperative Eye Contact: good eye contact Genitourinary: no CVA tenderness Results & Data ([facility]) Vital Signs (Past 12 Hours) Vital Signs Temp Pulse Pulse Resp BP BP Pulse Ox 01/11/22 05:33 36.6 C 75 16 182/79 H 96 01/11/22 01:02 36.4 C L 65 18 190/76 H 96 01/11/22 00:03 96 01/11/22 00:00 85 16 173/85 H 96 01/10/22 23:32 74 15 96 01/10/22 23:02 75 18 01/10/22 22:33 85 17 98 01/10/22 22:00 68 14 192/83 H 98 01/10/22 21:32 75 16 97 01/10/22 21:09 85 14 98 01/10/22 20:49 82 18 185/84 H 94 01/10/22 20:32 [address] abd pelvis IV con only CLINICAL HISTORY: LLQ abd pain TECHNIQUE: Helical axial images of the abdomen and pelvis were obtained and displayed. Automated dose lowering techniques and/or adjustment according to patient size were utilized for this exam. This exam was performed with intravenous contrast. COMPARISON: None available at the time of this dictation. FINDINGS: Lower chest: Bibasilar atelectasis versus scarring is seen. There is a 5 mm nodule incidentally noted in the right middle lobe. Liver: Hepatic steatosis is noted. Gallbladder and biliary tree: Patient is status post cholecystectomy. No intra- or extrahepatic biliary ductal dilation. Pancreas: Unremarkable, no focal lesions. Spleen: Unremarkable. Adrenals: Unremarkable. Kidneys and ureters: There is a 3 mm stone in the left ureterovesicular junction with associated left hydroureteronephrosis. Bladder: Unremarkable. Reproductive organs: Unremarkable. Bowel: Unremarkable appearance of the bowel. The appendix is normal. Lymph nodes Retroperitoneal: Unremarkable. Mesenteric: Unremarkable. Pelvic: Unremarkable. Peritoneum: Normal. Vessels: Unremarkable. Abdominal wall: A fat-containing umbilical hernia is seen. Bones: Degenerative changes in the visualized spine. IMPRESSION: 1. Obstructive left nephrolithiasis at the ureterovesicular junction with resulting hydroureteronephrosis. 2. 5 mm right middle lobe nodule. If not previously evaluated, follow-up CT chest can be performed. 3. Hepatic steatosis. PG Care Time/CCT Total # of Minutes Spent Total Time Spent with Patient: Total time spent is greater than 50% in coordination of care (as documented) at patient's floor/unit and/or counseling patient: Coding Level of Care Code 88187 Initial Inpt Care Lvl 2 Diagnoses Ureterolithiasis N20.1 Hydronephrosis due to obstruction of ureter N13.1 Urinary tract infection N39.0; R31.9 Hematuria presence: with hematuria Urinary tract infection type: site unspecified (1) Urinary tract infection Hematuria presence: with hematuria Urinary tract infection type: site unspecified Qualified Code(s): N39.0 - Urinary tract infection, site not specified; R31.9 - Hematuria, unspecified
[2022-01-11] MEDS ORDERED: hydrALAZINE HCL 20 MG/ML VIAL IV PRN (08:44)
[2022-01-11] MEDS ORDERED: INSULIN GLARGINE SOLOSTAR 100 UNITS/ML 3 ML PEN SC SCH (09:00)
[2022-01-11] MEDS ORDERED: lisinopril 40 MG TAB PO SCH (09:00)
--- NOTE | 2022-01-11 10:05 | XRay Report ---
XR chest 1V portable CLINICAL HISTORY: pre-op, pulm nodule on CT. Evaluate cardiac pulmonary status COMPARISON STUDY: No previous studies for comparison. TECHNIQUE: 1 view of the chest FINDINGS: Single frontal view of the chest demonstrates the cardiomediastinal silhouette to be within normal li mits. No definite pulmonary nodules identified radiographically. The lungs are clear of alveolar opac ities. There is no evidence for pleural effusion. There is no evidence for vascular congestion. There is no acute osseous pathology. IMPRESSION: 1. No acute cardiopulmonary disease. ACT 112: Negative or not required by law. Electronically signed by: Bolivar Akhtar M.D. 01/11/2022 10:04 AM
[2022-01-11] MEDS: MAGNESIUM SULFATE / D5W 1 GM/100 ML BAG IV SCH ×2 (11:56→15:07)
--- NOTE | 2022-01-11 12:12 | Anesthesiology Consultation ---
Date of Service January 11, 2022 Assessment & Plan Chart Review Chart Review: Acceptable Risk for Surgery and Patient NOT seen in Pre Admission Testing Consults Requested none History Surgery Operation Date: 01/11/22 11:50 Proposed Procedures p Cystoscopy, Left Stent Placement - Zeus Aguirre MD Height/Weight Height: 5 ft 1 in Weight: 93 kg Allergies Allergy/AdvReac Type Severity Reaction Status Date / Time amlodipine AdvReac Mild lower leg Verified 01/10/22 20:35 swelling Medications Home Medications Medication Instructions Recorded Confirmed Last Taken calcium carbonate 600 mg-vitamin 1 tab PO BID #90 tab 03/29/19 01/10/22 01/10/22 18:00 D3 10 mcg (400 unit) tablet (Calcium 600 + D(3)) insulin syringe-needle U-100 1 mL #90 ea 03/31/19 01/10/22 Unknown 31 gauge x 5/16" (BD Insulin Syringe Ultra-Fine) cyanocobalamin (vitamin B-12) 1,000 mcg PO .COMPLEX tab 04/29/19 01/10/22 Unknown 1,000 mcg tablet pen needle, diabetic 32 gauge x #300 ea 11/07/19 01/10/22 Unknown 5/32" (BD Ultra-Fine Mariama Pen Needle) ferrous sulfate 325 mg (65 mg 325 mg PO BID 08/31/20 01/10/22 01/10/22 10:00 iron) tablet pantoprazole 40 mg tablet,delayed 40 mg PO DAILY #90 tab 06/14/21 01/10/22 0 01/10/22 06:30 release lisinopril 40 mg tablet 40 mg PO DAILY #90 tab 06/15/21 01/10/22 01/10/22 06:30 metformin 1,000 mg tablet 1,000 mg PO BID #180 tab 06/15/21 01/10/22 01/10/22 18:00 gabapentin 300 mg capsule 300 mg PO HS #90 cap 08/19/21 01/10/22 Unknown clonidine HCl 0.2 mg tablet 0.2 mg PO BID #180 tab 09/09/21 01/10/22 01/10/22 18:00 diclofenac sodium 1 % topical gel 2 g TOP QID PRN #100 gm 09/09/21 01/10/22 Unknown levothyroxine 50 mcg tablet 50 mcg PO DAILY #30 tab 12/05/1101/10/22 01/10/22 06:30 insulin lispro protamine-lispro See Rx Instructions SQ TID #45 ml 12/28/21 01/10/22 01/10/22 18:00 100 unit/mL (75-25) subcutaneous pen (Humalog Mix 75-25 KwikPen) blood sugar diagnostic (FreeStyle #100 ea 01/05/22 01/10/22 Unknown Lite Strips) blood-glucose meter (FreeStyle #1 ea 01/05/22 01/10/22 Unknown Lite Meter) lancets 28 gauge (FreeStyle #100 ea 01/05/22 01/10/22 Unknown Lancets) atorvastatin 10 mg tablet 10 mg PO HS 01/10/22 01/10/22 Unknown Active Medications Generic Name Dose Route Start Last Admin Trade Name Freq PRN Reason Stop Dose Admin Acetaminophen 650 mg 01/11/22 01:02 01/11/22 07:56 Acetaminophen 325 Mg Tab PO 02/10/22 01:01 650 mg Q4H PRN Administration pain/fever Atorvastatin Calcium 10 mg 01/11/22 21:00 01/11/22 02:50 Atorvastatin 10 Mg Tab PO 02/10/22 20:59 10 mg HS ARISTIDES Administration Clonidine HCl 0.2 mg 01/11/22 09:00 01/11/22 07:57 Clonidine Hcl 0.1 Mg Tab PO 02/10/22 08:59 0.2 mg BID ARISTIDES Administration Dextrose 25 - 50 ml 01/11/22 01:02 01/11/22 03:06 Dextrose 50% 50 Ml Syringe IV 02/10/22 01:01 25 ml UD PRN Administration Hypoglycemia Protocol Protocol Gabapentin 300 mg 01/11/22 21:00 01/11/22 02:50 Gabapentin 300 Mg Cap PO 02/10/22 20:59 300 mg HS ARISTIDES Administration Lactated Ringer's 1,000 mls @ 125 mls/hr 01/11/22 01:02 01/11/22 11:57 Lr IV 01/11/22 17:01 0 mls/hr .Q8H ARISTIDES Infusion Magnesium Sulfate/Dextrose 1 gm in 100 mls @ 50 mls/hr 01/11/22 11:32 01/11/22 11:56 Magnesium Sulfate / D5w IV 01/11/22 15:31 50 mls/hr Q2H ARISTIDES Administration Insulin Aspart 0 units 01/11/22 06:00 01/11/22 12:04 Insulin Aspart Per Unit SC 02/10/22 05:59 Not Given Q6 ARISTIDES Insulin Glargine 8 units 01/11/22 09:00 01/11/22 07:59 Insulin Glargine Solostar 100 Units/Ml 3 Ml Pen SC 02/10/22 08:59 Not Given BID ARISTIDES Levothyroxine Sodium 50 mcg 01/11/22 06:30 01/11/22 06:36 Levothyroxine Sodium 50 Mcg Tablet PO 02/10/22 06:29 50 mcg DAILYBB ARISTIDES Administration Lisinopril 40 mg 01/11/22 09:00 01/11/22 07:57 Lisinopril 40 Mg Tab PO 02/10/22 08:59 40 mg DAILY ARISTIDES Administration Ondansetron HCl 4 mg 01/11/22 01:02 01/11/22 02:56 Ondansetron Inj 2 Mg/Ml 2 Ml Vial IV 02/10/22 01:01 4 mg Q6H PRN Administration Nausea And Vomiting Pantoprazole Sodium 40 mg 01/11/22 09:00 01/11/22 07:57 Pantoprazole 40 Mg Tab PO 02/10/22 08:59 40 mg DAILY ARISTIDES Administration NPO Date Last Intake of Fluids: 01/11/22 Time Last Intake of Fluids: 07:56 Last Intake of Fluids Comment: sip with morning meds. Date Last Intake of Solids: 01/10/22 Time Last Intake of Solids: 23:59 Last Intake of Solids Comment: prior to midnight. Past Medical History Medical History Chronic kidney disease, stage 3 (moderate) Diabetes type 2, uncontrolled Diabetic nephropathy Dyslipidemia Essential thrombocytosis GERD (gastroesophageal reflux disease) History of gastric ulcer Hypothyroidism Iron deficiency anemia JAK2 gene mutation Leukocytosis Microalbuminuria Monoclonal gammopathy of unknown significance (MGUS) Neuropathy Osteoarthritis of right hip Tachycardia Past Family History Family History Father Heart disease Hypertension Family history of cardiac disorder Family history of gallbladder disease Brother Diabetes Lung cancer Mother , February 2021 Diabetes Family history of gallbladder disease Denies family history of Family history of colon cancer Ovarian cancer Prostate cancer Myocardial infarction Breast cancer Past Surgical History Surgical History H/O colonoscopy H/O endoscopy History of cholecystectomy S/P tonsillectomy Social History Smoking Status: Never smoker Hx Alcohol Use: No Hx Substance Use: No substance use type: does not use Physical Exam Vital Signs Last Vital Signs Temp 36.6 C 01/11/22 08:42 Pulse 108 H 01/11/22 08:42 Resp 16 01/11/22 08:42 BP 111/57 L 01/11/22 10:44 Pulse Ox 96 01/11/22 08:42 Testing Laboratory Results 01/11/22 05:26 01/11/22 05:26 Urine Color Yellow 01/10/22 19:15 Urine Appearance Turbid (Clear) A 01/10/22 19:15 Urine pH 5.0 (4.5-7.5) 01/10/22 19:15 Ur Specific [place] 1.021 (1.000-1.030) 01/10/22 19:15 Urine Protein 2+ (Negative) H 01/10/22 19:15 Urine Glucose (UA) Trace (Negative) H 01/10/22 19:15 Urine Ketones Trace (Negative) H 01/10/22 19:15 Urine Nitrite Negative (Negative) 01/10/22 19:15 Ur Leukocyte Esterase 1+ (Negative) H 01/10/22 19:15 Urine WBC (Auto) 10-30 /hpf (0-5) H 01/10/22 19:15 Urine RBC (Auto) 10-30 /hpf (0-4) H 01/10/22 19:15 U Hyaline Cast (Auto) 5-10 /lpf (0-5) H 01/10/22 19:15 U Epithel Cells (Auto) >30 /lpf (0-5) H 01/10/22 19:15 Urine Bacteria (Auto) 2+ (Negative) H 01/10/22 19:15 01/11/22 01/11/22 01/11/22 11:54 05:59 03:30 POC Glucose 144 H 116 H 138 H 01/11/22 01/11/22 03:00 00:49 POC Glucose 67 L* 81 Electrocardiogram Date: 01/10/22 Findings: + NSR @ Chest X-Ray Date: 01/10/22 Findings: + NAD
[2022-01-11] MEDS ORDERED: PHARMACY GLYCEMIC MGMT CONSULT PRN (12:54)
--- NOTE | 2022-01-11 13:26 | Electrocardiogram Report ---
Test Reason : Blood Pressure : / mmHG Vent. Rate : 081 BPM Atrial Rate : 081 BPM P-R Int : 166 ms QRS Dur : 078 ms QT Int : 370 ms P-R-T Axes : 064 054 053 degrees QTc Int : 429 ms Normal sinus rhythm Normal ECG No previous ECGs available Confirmed by Nickolas Lopez ([id number]) on 01/11/2022 1:26:30 PM Referred By: REFERRED SELF Confirmed By:Ceferino Lopez
[2022-01-11] MEDS ORDERED: ePHEDrine sulfate 50 MG/ML AMP IV PRN (13:40)
[2022-01-11] MEDS ORDERED: fentaNYL citrate 100 MCG/2 ML VIAL IV PRN (13:40)
[2022-01-11] MEDS ORDERED: ATROPINE SULFATE 0.1 MG/ML 10ML SYR IV PRN (13:40)
[2022-01-11] MEDS ORDERED: LIDOCAINE 2% 2 ML VIAL/AMP(20MG/ML) INFIL ONE (13:42)
[2022-01-11] MEDS ORDERED: fentaNYL citrate 100 MCG/2 ML VIAL ONE (13:42)
[2022-01-11] MEDS ORDERED: MIDAZOLAM HCL 1 MG/ML 2ML VIAL ONE (13:42)
[2022-01-11] MEDS ORDERED: PROPOFOL IV EMULSION 10 MG/ML 20 ML VIAL IV ONE (13:42)
--- NOTE | 2022-01-11 14:14 | Post Operative Brief Note ---
PG Immediate Post Op with CF Date of Surgery January 11, 2022 Pre & Post Diagnosis Operation Date: 01/11/22 11:50 Pre-Op Diagnosis: Ureterolithiasis, Hydronephrosis due to obstruction of ureter, Urinary tract infection Post-Op Diagnosis: Ureterolithiasis, Hydronephrosis due to obstruction of ureter, Urinary tract infection I identified the patient and participated in the time-out.: Yes Procedure Operation Date: 01/11/22 11:50 Actual Procedures p Cystoscopy, left retrograde, Left Stent Placement(Left), jennings placement - Zeus Aguirre MD Surgeon Zeus Aguirre MD Director Revenue None Estimated Blood Loss 0 Findings See Below 1. Mild left hydro 2. Stent in good position Specimens Specimen Description: No specimens Drains Jennings Catheter (16 Burmese 5 mL balloon) and Other (6x24 L stent ) Complications None Disposition Accompanied Patient To Recovery: No Disposition: Recovery Room Overlapping Procedure I was present for: the critical portions of procedure.
--- NOTE | 2022-01-11 14:24 | Operative Report ---
PG Post Operative Report Pre & Post Diagnosis Operation Date: 01/11/22 11:50 Pre-Op Diagnosis: Ureterolithiasis, Hydronephrosis due to obstruction of ureter, Urinary tract infection Post-Op Diagnosis: Ureterolithiasis, Hydronephrosis due to obstruction of ureter, Urinary tract infection I identified the patient and participated in the time-out.: Yes Procedure Operation Date: 01/11/22 11:50 Actual Procedures p Cystoscopy, left retrograde pyelogram with radiographic interpretation, left Stent Placement, Santo catheter placement - Zeus Aguirre MD Surgeon Zeus Aguirre MD Chief Mechanical Officer None Estimated Blood Loss 0 Findings See Below 1. Normal urethra and bladder 2. Left retrograde shows mild hydronephrosis 3. Stent in appropriate position 4. Mild debris from left UO Specimens None Drains 1. 6 Yoruba by 24 cm left ureteral stent 2. 16 Yoruba Santo catheter with 10 cc in balloon Anesthesia Type General Complications None Disposition Accompanied Patient To Recovery: No Disposition: Recovery Room Indications 71-year-old female who presented with left hydronephrosis and what appeared to be a distal left ureteral calculus on CT scan. Labs were concerning for infection and therefore she was taken to the operating room for left ureteral stent placement. Description of Procedure After informed consent was obtained, the patient was transported operative suite. MAC anesthesia was induced. The patient was placed in dorsal lithotomy position prepped and draped in a sterile fashion. They received preoperative ceftriaxone for antibiotic prophylaxis. An appropriate surgical timeout was performed. A 22 Yoruba rigid scope was inserted per urethra into the bladder. Padilla cystoscopy revealed no stones or lesions. I turned my attention the left ureteral orifice and intubated this with a 5 Yoruba open-ended catheter. A left retrograde pyelogram was shot which showed mild left hydronephrosis. A sensor wire was advanced into the kidney and confirmed fluoroscopically. A 6 Yoruba by 24 cm left ureteral stent was deployed with a good proximal coil in the renal pelvis and a good distal coil noted in the bladder. These were confirmed fluoroscopically and under direct visualization, respectively. There was mild debris from left UO and due to concern for infection, I placed a 16 Yoruba Santo catheter and inflated balloon with 10 cc of sterile water. This concluded the end of the case. All counts were correct at the end of the case. I was present, scrubbed, and actively participated for the entirety of the procedure. I attest to the content of the Intraoperative Record and any orders documented therein. Any exceptions are noted below.
[2022-01-11] MEDS ORDERED: DIATRIZOATE MEGLUMINE 30% 100ML VIAL INSTIL ONE (14:29)
--- NOTE | 2022-01-11 15:02 | Fluoroscopy Report ---
INTRAOPERATIVE RADIOGRAPHS CLINICAL HISTORY: Left ureteral stent placement. Fluoroscopy time: 17 seconds. FINDINGS: 2 spot fluoroscopic views of the left lower quadrant are presented. The images show hydrone phrosis of the left renal collecting system with the proximal and of a ureteral stent placed in appro priate position. IMPRESSION: Intraoperative images from a left ureteral stent placement procedure as above. Electronically signed by: Maxx Fregoso M.D. 01/11/2022 3:00 PM
--- NOTE | 2022-01-11 15:08 | Anesthesiology Progress Note ---
Date of Service January 11, 2022 Anesthesia Post Procedure Vital Signs Vital Signs: Temp Pulse Pulse Pulse Resp BP BP 01/11/22 14:50 36.7 C 100 H 16 96/57 L 01/11/22 14:40 98 H 16 100/51 L 01/11/22 14:30 104 H 18 90/54 L 01/11/22 14:23 36.4 C L 106 H 14 92/52 L 01/11/22 13:13 37 C 106 H 20 01/11/22 10:44 01/11/22 08:42 36.6 C 108 H 16 01/11/22 05:33 36.6 C 75 16 01/11/22 01:02 36.4 C L 65 18 01/11/22 00:03 01/11/22 00:00 85 16 01/10/22 23:32 74 15 01/10/22 23:02 75 18 01/10/22 22:33 85 17 01/10/22 22:00 68 14 192/83 H 01/10/22 21:32 75 16 01/10/22 21:09 85 14 01/10/22 20:49 82 18 01/10/22 20:32 74 14 01/10/22 20:02 75 22 01/10/22 20:00 94 H 18 01/10/22 19:30 64 14 165/92 H 01/10/22 19:24 66 14 01/10/22 18:49 36.6 C 75 18 185/82 H BP Pulse Ox 01/11/22 14:50 94 01/11/22 14:40 98 01/11/22 14:30 100 01/11/22 14:23 95 01/11/22 13:13 122/75 98 01/11/22 10:44 111/57 L 01/11/22 08:42 184/92 H 96 01/11/22 05:33 182/79 H 96 01/11/22 01:02 190/76 H 96 01/11/22 00:03 96 01/11/22 00:00 173/85 H 96 01/10/22 23:32 96 01/10/22 23:02 01/10/22 22:33 98 01/10/22 22:00 98 01/10/22 21:32 97 01/10/22 21:09 98 01/10/22 20:49 185/84 H 94 01/10/22 20:32 99 01/10/22 20:02 98 01/10/22 20:00 97 01/10/22 19:30 98 01/10/22 19:24 99 01/10/22 18:49 96 Pain Intensity Left Abdomen: Pain Intensity: 4 Transfer of Care Handoff Completed per policy Notes Mental Status: alert / awake / arousable and participated in evaluation Patient Amnestic to Procedure: Yes Nausea / Vomiting: adequately controlled Pain: adequately controlled Airway Patency, RR, SpO2: stable & adequate BP & HR: stable & adequate Hydration State: stable & adequate Anesthetic Complications: no major complications apparent and Pt Satisfied with anesthetic care
[2022-01-11] MEDS ORDERED: Nursing to Pharmacy Communication SCH (15:30)
[2022-01-11] MEDS: INSULIN GLARGINE SOLOSTAR 100 UNITS/ML 3 ML PEN SC SCH (20:37)
[2022-01-11] MEDS ORDERED: cefTRIAXone SODIUM 2,000 MG in DEXTROSE 5% 50 ML IV SCH (21:00)
[2022-01-11] MEDS ORDERED: TAMSULOSIN HCL 0.4 MG CAP PO SCH (21:00)
[2022-01-12] MEDS: LEVOTHYROXINE SODIUM 50 MCG TABLET PO SCH (06:02)
[2022-01-12 07:19] LABS: Basophils # (auto) 0.02 K/uL (0-0.2); Basophils % (auto) 0.1 %; Eosinophils # (auto) 0.19 K/uL (0-0.5); Eosinophils % (auto) 1.3 %; Hematocrit (blood only) 37.4 % (37-47); Hemoglobin 11.6 g/dL (12.0-16.0); Immature Granulocytes # (auto) 0.03 K/uL (0.00-0.02); Immature Granulocytes % (auto) 0.2 %; Lymphocytes # (auto) 2.79 K/uL (1.2-3.4); Mean Corpuscular Hemoglobin 25.8 pg (25-34); Mean Corpuscular Volume 83.1 fL (80-100); Mean Platelet Volume 9.4 fL (7.4-10.4); Monocytes # (auto) 1.31 K/uL (0.11-0.59); Monocytes % (auto) 8.9 %; Neutrophils # (auto) 10.35 K/uL (1.4-6.5); Neutrophils % (auto) 70.5 %; Platelet Count 326 K/uL (130-400); RDW Coefficient of Variation 15.6 % (11.5-14.5); RDW Standard Deviation 47.6 fL (36.4-46.3); White Blood Count 14.69 K/uL (4.8-10.8)
[2022-01-12 07:22] LABS: BUN Creatinine Ratio 11.8 (10-20); Calcium 8.6 mg/dl (8.5-10.1); Creatinine Clr Calc Pharmacy 34.8 ml/min; Est GFR (African American) 39.3 ml/min; Est GFR (Non-African American) 33.9 ml/min; Magnesium 2.1 mg/dl (1.7-2.4); Potassium 4.2 mmol/L (3.5-5.1)
--- NOTE | 2022-01-12 08:22 | Hospitalist Progress Note ---
Date of Service January 12, 2022 Assessment & Plan Admission and Anticipated Discharge Date Admission Date: January 10, 2022 Results & Data Results & Data ([facility]) Vital Signs (Past 12 Hours) Vital Signs Temp Pulse Resp BP Pulse Ox 01/12/22 07:33 37.1 C 98 H 17 119/72 93 01/12/22 02:35 37.6 C H 98 H 18 95/58 L 91 01/11/22 22:44 37.4 C 98 H 18 115/71 91 Laboratory Results 01/12/22 01/12/22 01/12/22 Range/Units 08:03 06:23 06:23 WBC 14.69 H (4.8-10.8) K/uL RBC 4.50 (4.2-5.4) M/uL Hgb 11.6 L (12.0-16.0) g/dL Hct 37.4 (37-47) % MCV 83.1 (80-100) fL MCH 25.8 (25-34) pg MCHC 31.0 L (32-36) g/dL RDW Std Deviation 47.6 H (36.4-46.3) fL RDW Coeff of Belkis 15.6 H (11.5-14.5) % Plt Count 326 (130-400) K/uL MPV 9.4 (7.4-10.4) fL Immature Gran % (Auto) 0.2 % Neut % (Auto) 70.5 % Lymph % (Auto) 19.0 % Haakon % (Auto) 8.9 % Eos % (Auto) 1.3 % Baso % (Auto) 0.1 % Neut # (Auto) 10.35 H (1.4-6.5) K/uL Lymph # (Auto) 2.79 (1.2-3.4) K/uL Haakon # (Auto) 1.31 H (0.11-0.59) K/uL Eos # (Auto) 0.19 (0-0.5) K/uL Baso # (Auto) 0.02 (0-0.2) K/uL Immature Gran # (Auto) 0.03 H (0.00-0.02) K/uL Sodium 139 (136-145) mmol/L Potassium 4.2 (3.5-5.1) mmol/L Chloride 106 (98-107) mmol/L Carbon Dioxide 25 (21-32) mmol/L Anion Gap 8 (3-11) BUN 18 (6-23) mg/dl Creatinine 1.52 H (0.6-1.2) mg/dl Est Cr Clr Drug Dosing 34.8 ml/min Est GFR ( Amer) 39.3 ml/min Est GFR (Non-Af Amer) 33.9 ml/min BUN/Creatinine Ratio 11.8 (10-20) Glucose 160 H (70-99(Fasting)) mg/dl POC Glucose 158 H (70-99) mg/dl Lactate (0.4-2.0) mmol/L Calcium 8.6 (8.5-10.1) mg/dl Magnesium 2.1 (1.7-2.4) mg/dl Vitamin B12 (180-914) pg/ml 01/11/22 01/11/22 01/11/22 Range/Units 20:31 17:02 14:28 WBC (4.8-10.8) K/uL RBC (4.2-5.4) M/uL Hgb (12.0-16.0) g/dL Hct (37-47) % MCV (80-100) fL MCH (25-34) pg MCHC (32-36) g/dL RDW Std Deviation (36.4-46.3) fL RDW Coeff of Belkis (11.5-14.5) % Plt Count (130-400) K/uL MPV (7.4-10.4) fL Immature Gran % (Auto) % Neut % (Auto) % Lymph % (Auto) % Haakon % (Auto) % Eos % (Auto) % Baso % (Auto) % Neut # (Auto) (1.4-6.5) K/uL Lymph # (Auto) (1.2-3.4) K/uL Haakon # (Auto) (0.11-0.59) K/uL Eos # (Auto) (0-0.5) K/uL Baso # (Auto) (0-0.2) K/uL Immature Gran # (Auto) (0.00-0.02) K/uL Sodium (136-145) mmol/L Potassium (3.5-5.1) mmol/L Chloride (98-107) mmol/L Carbon Dioxide (21-32) mmol/L Anion Gap (3-11) BUN (6-23) mg/dl Creatinine (0.6-1.2) mg/dl Est Cr Clr Drug Dosing ml/min Est GFR ( Amer) ml/min Est GFR (Non-Af Amer) ml/min BUN/Creatinine Ratio (10-20) Glucose (70-99(Fasting)) mg/dl POC Glucose 188 H 143 H 137 H (70-99) mg/dl Lactate (0.4-2.0) mmol/L Calcium (8.5-10.1) mg/dl Magnesium (1.7-2.4) mg/dl Vitamin B12 (180-914) pg/ml 01/11/22 01/11/22 01/11/22 Range/Units 13:14 11:54 09:00 WBC (4.8-10.8) K/uL RBC (4.2-5.4) M/uL Hgb (12.0-16.0) g/dL Hct (37-47) % MCV (80-100) fL MCH (25-34) pg MCHC (32-36) g/dL RDW Std Deviation (36.4-46.3) fL RDW Coeff of Belkis (11.5-14.5) % Plt Count (130-400) K/uL MPV (7.4-10.4) fL Immature Gran % (Auto) % Neut % (Auto) % Lymph % (Auto) % Haakon % (Auto) % Eos % (Auto) % Baso % (Auto) % Neut # (Auto) (1.4-6.5) K/uL Lymph # (Auto) (1.2-3.4) K/uL Haakon # (Auto) (0.11-0.59) K/uL Eos # (Auto) (0-0.5) K/uL Baso # (Auto) (0-0.2) K/uL Immature Gran # (Auto) (0.00-0.02) K/uL Sodium (136-145) mmol/L Potassium (3.5-5.1) mmol/L Chloride (98-107) mmol/L Carbon Dioxide (21-32) mmol/L Anion Gap (3-11) BUN (6-23) mg/dl Creatinine (0.6-1.2) mg/dl Est Cr Clr Drug Dosing ml/min Est GFR ( Amer) ml/min Est GFR (Non-Af Amer) ml/min BUN/Creatinine Ratio (10-20) Glucose (70-99(Fasting)) mg/dl POC Glucose 134 H 144 H (70-99) mg/dl Lactate (0.4-2.0) mmol/L Calcium (8.5-10.1) mg/dl Magnesium (1.7-2.4) mg/dl Vitamin B12 700 (180-914) pg/ml 01/11/22 01/11/22 Range/Units 08:53 08:50 WBC (4.8-10.8) K/uL RBC (4.2-5.4) M/uL Hgb (12.0-16.0) g/dL Hct (37-47) % MCV (80-100) fL MCH (25-34) pg MCHC (32-36) g/dL RDW Std Deviation (36.4-46.3) fL RDW Coeff of Belkis (11.5-14.5) % Plt Count (130-400) K/uL MPV (7.4-10.4) fL Immature Gran % (Auto) % Neut % (Auto) % Lymph % (Auto) % Haakon % (Auto) % Eos % (Auto) % Baso % (Auto) % Neut # (Auto) (1.4-6.5) K/uL Lymph # (Auto) (1.2-3.4) K/uL Haakon # (Auto) (0.11-0.59) K/uL Eos # (Auto) (0-0.5) K/uL Baso # (Auto) (0-0.2) K/uL Immature Gran # (Auto) (0.00-0.02) K/uL Sodium (136-145) mmol/L Potassium (3.5-5.1) mmol/L Chloride (98-107) mmol/L Carbon Dioxide (21-32) mmol/L Anion Gap (3-11) BUN (6-23) mg/dl Creatinine (0.6-1.2) mg/dl Est Cr Clr Drug Dosing ml/min Est GFR ( Amer) ml/min Est GFR (Non-Af Amer) ml/min BUN/Creatinine Ratio (10-20) Glucose (70-99(Fasting)) mg/dl POC Glucose (70-99) mg/dl Lactate 1.1 (0.4-2.0) mmol/L Calcium (8.5-10.1) mg/dl Magnesium 1.6 L (1.7-2.4) mg/dl Vitamin B12 (180-914) pg/ml Diagnostic Findings Chest X-Ray 01/11/22 08:46 XR chest 1V portable CLINICAL HISTORY: pre-op, pulm nodule on CT. Evaluate cardiac pulmonary status COMPARISON STUDY: No previous studies for comparison. TECHNIQUE: 1 view of the chest FINDINGS: Single frontal view of the chest demonstrates the cardiomediastinal silhouette to be within normal limits. No definite pulmonary nodules identified radiographically. The lungs are clear of alveolar opacities. There is no evidence for pleural effusion. There is no evidence for vascular congestion. There is no acute osseous pathology. IMPRESSION: 1. No acute cardiopulmonary disease. ACT 112: Negative or not required by law. Electronically signed by: Bolivar Akhtar M.D. 01/11/2022 10:04 AM Retrograde Pyelogram 01/11/22 14:00 INTRAOPERATIVE RADIOGRAPHS CLINICAL HISTORY: Left ureteral stent placement. Fluoroscopy time: 17 seconds. FINDINGS: 2 spot fluoroscopic views of the left lower quadrant are presented. Th e images show hydronephrosis of the left renal collecting system with the proximal and of a ureteral stent placed in appropriate position. IMPRESSION: Intraoperative images from a left ureteral stent placement procedure as above. Electronically signed by: Maxx Fregoso M.D. 01/11/2022 3:00 PM PG Care Time/CCT Total # of Minutes Spent Total Time Spent with Patient: Total time spent is greater than 50% in coordination of care (as documented) at patient's floor/unit and/or counseling patient: Coding
--- NOTE | 2022-01-12 08:27 | Urology Progress Note ---
Date of Service January 12, 2022 Assessment & Plan (1) Ureterolithiasis: (2) Hydronephrosis due to obstruction of ureter: (3) Urinary tract infection: (4) S/P ureteral stent placement: Plan: - Pt POD#1 s/p cystoscopy, left retrograde pyelogram and left ureteral stent placement with Dr. Aguirre. - Doing well, progressing as expected. - Afebrile, lab work reviewed - creatinine 1.52, WBC improved to 14.69. - Urine culture prelim pin point growth, re-incubating. - Blood cultures no growth x 24 hours. - Currently on IV Ceftriaxone, follow cultures. - Tolerating left ureteral stent without bother. - Discontinue Santo catheter this AM, monitor for void. - Okay to d/c from perspective when medically stable. - Recommend d/c with course of PO antibiotics, Tamsulosin, prn Pyridium and prn pain medication for stent management. - Expected clinical course reviewed, all questions answered. - Will arrange outpatient follow-up with our service for definitive stone management. - will sign off, contact our service with any additional questions or concerns. Admission and Anticipated Discharge Date Admission Date: January 10, 2022 Supervising Physician Co-Signing Physician Notes Discussed patient with HUA. Agree with plan. Subjective Patient seen and examined at bedside this AM. She is awake, alert and sitting up in bed reading. No issues overnight. Subjectively doing well. No flank, abdominal, or suprapubic pain. Santo catheter intact, patent and draining clear yellow urine. Tolerating diet, no nausea or vomiting. No fever or chills. Offers no complaints at present. Review of Systems Constitutional: as per Subjective / HPI Gastrointestinal: as per Subjective / HPI Genitourinary: as per Subjective / HPI Physical Exam Constitutional: well developed, well nourished and + obese; no acute distress and not ill appearing Respiratory: normal respiratory effort and able to speak in complete sentences; no respiratory distress and no labored breathing Cardiovascular: Extremities: no pedal edema Gastrointestinal (Abdomen): Inspection/Auscultation: abdomen normal to inspection; abdomen not distended Musculoskeletal: Head/Neck/Chest: normocephalic and head atraumatic Neurologic: moves all extremities and awake Psychiatric: Orientation: alert and oriented x 3 Genitourinary: Santo intact, patent and draining clear yellow urine Results & Data ([facility]) Vital Signs (Past 12 Hours) Vital Signs Temp Pulse Resp BP Pulse Ox 01/12/22 07:33 37.1 C 98 H 17 119/72 93 01/12/22 02:35 37.6 C H 98 H 18 95/58 L 91 01/11/22 22:44 37.4 C 98 H 18 115/71 91 PG Care Time/CCT Total # of Minutes Spent Total Time Spent with Patient: Total time spent is greater than 50% in coordination of care (as documented) at patient's floor/unit and/or counseling patient: Coding Level of Care Code 39367 Subseq Hosp Care Lvl 2 Diagnoses Ureterolithiasis N20.1 Hydronephrosis due to obstruction of ureter N13.1 Urinary tract infection N39.0; R31.9 Hematuria presence: with hematuria Urinary tract infection type: site unspecified S/P ureteral stent placement Z96.0 (1) Urinary tract infection Hematuria presence: with hematuria Urinary tract infection type: site unspecified Qualified Code(s): N39.0 - Urinary tract infection, site not spec ified; R31.9 - Hematuria, unspecified
--- NOTE | 2022-01-12 09:33 | Pharmacy Report ---
Pharmacy Glycemic Short Note 2 - Date of Service January 12, 2022 - Glycemic Short BSG Results (Last 24 hours): 01/11/22 01/11/22 01/11/22 11:54 13:14 14:28 Glucose POC Glucose 144 H 134 H 137 H 01/11/22 01/11/22 01/12/22 17:02 20:31 06:23 Glucose 160 H POC Glucose 143 H 188 H 01/12/22 08:03 Glucose POC Glucose 158 H OUTPATIENT ANTIDIABETIC REGIMEN: * Humalog 75/25 TID 60 units qam, 35-40 units @ lunch, 55 units at dinner * A1c: 6.3% (09/26/21) ASSESSMENT: * Patient POD 1 cystoscopy, doing well per provider note * Patient refused lantus yesterday morning but did receive 16 units last evening and has been generally well controlled. * As patient is now ordered a diet, will increase the Lantus scale ordered. PLAN FOR INPATIENT GLYCEMIC CONTROL: * Hold outpatient oral diabetes medications * Basal insulin * Lantus 9,16,24 units SQ BID based on BSG (See MAR for details) * Bolus insulin * NovoLog per scale ACHS or Q6hrs while NPO * Goal Range: Low 100 mg/dL - High 140 mg/dL * Correction Factor: 18 mg/dL/unit * Nutritional / Prandial insulin per carb ratio of 1 unit per 7 grams CHO consumed
[2022-01-12] MEDS: INSULIN GLARGINE SOLOSTAR 100 UNITS/ML 3 ML PEN SC SCH (09:48)
[2022-01-12] MEDS: INSULIN ASPART PER UNIT SC SCH ×2 (09:48→13:20)
[2022-01-12] MEDS: cloNIDine HCL 0.1 MG TAB PO SCH (09:56)
[2022-01-12] MEDS: PANTOprazole 40 MG TAB PO SCH (09:56)
--- NOTE | 2022-01-12 13:49 | Discharge Summary ---
Date of Service January 12, 2022 Admission HPI Per Admitting Provider Zaria Hill is a pleasant 71yo female with history of CKD, DM, HTN, GERD, MGUS/ET presenting with acute onset left flank pain. Pain began this AM - left flank with radiation into the left groin. 7/10 in severity at its worst, intermittent, aching sensation. Also with nausea, chills and sweats. Reports decreased UOP. No dysuria, chest pain, palpitations, SOB. No abdominal pain. No history of renal stones. IN the ER patient afebrile, hypertensive otherwise HD stable. In significant discomfort ER Course: Tylenol, Ceftriaxone, Zofran, NSS Admission Exam Per Admitting Provider General: patient uncomfortable in appearance, NAD Skin: warm, dry, intact, no rashes or lesions HEENT: NC/AT, PERRL, EOMI, anicteric sclera, conjunctiva without injection, external ear normal to inspection and nontender, nares patent, moist mucus membranes, dentition intact, no oropharyngeal lesions, neck supple, trachea midline, no LAD, no thyromegaly, no JVD Heart: +S1/S2, regular, no m/r/g Lungs: equal air entry bilaterally, no rales/rhonchi/wheezes Abd: +BS, soft, NT/ND, no masses/organomegaly/ascites, +Left CVA tenderness Ext: warm, 2+ pulses in UE/LE bilaterally, no clubbing/cyanosis or edema Neuro: nonfocal, patient AA&O x 4, speech intact, no facial droop, moving all extremities on command with equal strength 5/5 Principal Diagnosis Ureterolithiasis with hydronephrosis Discharge Exam General: WD/WN, sitting up in chair reading book, no acute distress ENT: mmm, trachea midline without JVD, poor dentition/several cracked and chipped teeth CV: RRR (rate 99bpm), no m/r/g, no edema, pulses palpable Resp: CTAB, diminished in bases, no w/c/r, on room air, able to talk in complete sentences GI: +BS throughout, soft, nontender : no jennings, NO CVA tenderness Psych/Neuro: alert, oriented x 3, pleasant and cooperative follows commands, answering questions appropriately, no facial droop or slurred speech. CN intact grossly Discharge Data Allergies Allergy/AdvReac Type Severity Reaction Status Date / Time amlodipine AdvReac Mild lower leg Verified 01/11/22 13:11 swelling Consultations 01/10/22 22:02 ED Decision to Admit Stat 01/10/22 22:53 Consult Urology Routine Procedures Performed Operation Date: 01/11/22 11:50 Actual Procedures p Cystoscopy, Left retrograde pyelogram and left Stent Placement(Left) - Zeus Aguirre MD Ordered Studies Abdomen/Pelvis CT 01/10/22 20:20 CT abd pelvis IV con only CLINICAL HISTORY: LLQ abd pain TECHNIQUE: Helical axial images of the abdomen and pelvis were obtained and displayed. Automated dose lowering techniques and/or adjustment according to patient size were utilized for this exam. This exam was performed with intravenous contrast. COMPARISON: None available at the time of this dictation. FINDINGS: Lower chest: Bibasilar atelectasis versus scarring is seen. There is a 5 mm nodule incidentally noted in the right middle lobe. Liver: Hepatic steatosis is noted. Gallbladder and biliary tree: Patient is status post cholecystectomy. No intra- or extrahepatic biliary ductal dilation. Pancreas: Unremarkable, no focal lesions. Spleen: Unremarkable. Adrenals: Unremarkable. Kidneys and ureters: There is a 3 mm stone in the left ureterovesicular junction with associated left hydroureteronephrosis. Bladder: Unremarkable. Reproductive organs: Unremarkable. Bowel: Unremarkable appearance of the bowel. The appendix is normal. Lymph nodes Retroperitoneal: Unremarkable. Mesenteric: Unremarkable. Pelvic: Unremarkable. Peritoneum: Normal. Vessels: Unremarkable. Abdominal wall: A fat-containing umbilical hernia is seen. Bones: Degenerative changes in the visualized spine. IMPRESSION: 1. Obstructive left nephrolithiasis at the ureterovesicular junction with resulting hydroureteronephrosis. 2. 5 mm right middle lobe nodule. If not previously evaluated, follow-up CT chest can be performed. 3. Hepatic steatosis. ACT 112: Negative or not required by law. Electronically signed by: Shola Garcia M.D. 01/11/2022 8:12 AM Chest X-Ray 01/11/22 08:46 XR chest 1V portable CLINICAL HISTORY: pre-op, pulm nodule on CT. Evaluate cardiac pulmonary status COMPARISON STUDY: No previous studies for comparison. TECHNIQUE: 1 view of the chest FINDINGS: Single frontal view of the chest demonstrates the cardiomediastinal silhouette to be within normal limits. No definite pulmonary nodules identified radiographically. The lungs are clear of alveolar opacities. There is no evidence for pleural effusion. There is no evidence for vascular congestion. There is no acute osseous pathology. IMPRESSION: 1. No acute cardiopulmonary disease. ACT 112: Negative or not required by law. Electronically signed by: Bolivar Akhtar M.D. 01/11/2022 10:04 AM Retrograde Pyelogram 01/11/22 14:00 INTRAOPERATIVE RADIOGRAPHS CLINICAL HISTORY: Left ureteral stent placement. Fluoroscopy time: 17 seconds. FINDINGS: 2 spot fluoroscopic views of the left lower quadrant are presented. The images show hydronephrosis of the left renal collecting system with the proximal and of a ureteral stent placed in appropriate position. IMPRESSION: Intraoperative images from a left ureteral stent placement procedure as above. Electronically signed by: Maxx Fregoso M.D. 01/11/2022 3:00 PM Hospital Course (1) Renal stone: 71yo female with one day of severe left flank pain, nausea. Found to have obstructing stone in left ureter, 1mm in size with associated hydroureteronephrosis and perinephric stranding. UA with possible infection - bacteria present as well as LE/WBCs and blood. Also with Uric Acid crystals - ?uric acid stone. Patient with history of MGUS/Essential thrombocytosis, chronically elevated WBC count Sepsis with elevated WBC/lactic (lactic normalized on repeat with IVF) CTAP: Obstructive left nephrolithiasis at the ureterovesical junction with resulting hydroureteronephrosis. Urology consulted * s/p cystoscopy, left retrograde pyelogram and left ureteral stent placement with Dr. Aguirre on 01/11 * Continuing flomax at discharge, Pyridium prn. Had not required further opiates for pain and can continue tylenol as needed * F/U Urology for stent removal -- they are to arrange Urine cx without growth, although placement of jennings during OR, and discussed with Urology and sending on Bactrim x 3 days (renal function with GFR >30 and can use) -- did discuss if any darkening of urine/cramping/symptoms to alert PCP WBC trending down, did have slight elevation in temp but had some atelectasis on exam. No sob/hypoxia or fevers reported. Abx as above Of note, does have hx TT and follows with Dr Cuellar from heme/onc. Not on asa due to GIB BCx NGTD Held lisinopril for elevated CR pre-op but was given, held post op and discussed with patient she can resume this medication tomorrow unless BPs elevated tonight at home/symptomatic -- Baseline Cr appears to be 1.2-1.3, 1.5 prior to discharge but states urine clear/no issues and encouraged to stay well hydrated at discharge She has labs next week to get for f/u with heme/onc and can check Cr then Mag also replaced while inpatient, normal on repeat, likely 2nd to poor PO intake days prior as well as PPI use --> rec'd f/u with PCP but if continued issues with cramping would consider daily PO supplementation Also, incidental pulm nodule noted on CTAP and recommend she have follow up with heme/onc/PCP for CT chest outpatient given fam hx cuca ca. Patient is a lifelong NON-SMOKER --> Dr Alisa alvarenga and she will follow up at beginning of next month with patient regarding pulm nodule (2) Diabetes type 2, uncontrolled: Chronic. Well controlled. Last [id number]=3.3 on 09/26/21 Did have episode hypoglycemia morning after admission and admitted she took her insulin but then was unable to eat. Corrected w/ IV and remained stable Lantus, SSI while inpatient and pharmacy consulted Resuming home meds at discharge (3) Hypertension: Pain control as above Continued Clonidine 0.2mg po BID On Lisinopril 40mg po daily --PLACED ON HOLD for elevated Cr 1.49 from 1.23 with obstructing stone and Cr relatively stable 1.52 after cysto and continued to hold lisinopril AM day of discharge and can resume tomorrow BP stable prior to d/c (4) Dyslipidemia: Chronic. On medications -Continued Atorvastatin 10mg po qHS (5) Hypothyroidism: Chronic. Elevated TSH on last check TSH wnl 1.386 on repeat -Continued Synthroid 50mcg po daily (6) GERD (gastroesophageal reflux disease): Chronic. Well controlled on medications -Continued Protonix 40mg po daily (7) Chronic kidney disease, stage 3 (moderate): BUN and Cr near baseline Avoid nephrotoxic agents UOP acceptable, Cr stable post-op but holding NEEL until tomorrow for stability given BP stable (8) Pulmonary nodule: On CTAP on admission -- 5 mm right middle lobe nodule. If not previously evaluated, follow-up CT chest can be performed. Can be done on outpatient basis but does have fam hx and recommend she follow up with PCP for outpatient CT of her chest Dr Cuellar to f/u with patient regarding this as already stated -- appt beginning of January with labs already scheduled (9) Hypomagnesemia: replaced while inpatient, normal on repeat suspect 2nd to poor PO intake [employer] as well as PPI use F/u PCP but could consider daily supplementation while on PPI given cramping/neuropathy Will also check B12 level (on 1000 PO daily supplementation) to ensure no increased supplementation needed as she decreased self 2x/weekly -- wnl and can continue current dosing Total Time Total Time Spent Total Time Spent (In Minutes): 40 Discharge Plan Discharge Items Patient Disposition: Home - Self-Care Reason For Visit: LEFT FLANK PAIN, RENAL STONE Discharge Diagnosis: Left Kidney stone with obstruction Goals: You have been hospitalized for an urgent problem which required surgery. During your stay at [facility], we have made an effort to correct the problem that brought you to the hospital while keeping you as comfortable as possible. Surgery and medications were used to bring your condition under control and your discharge instructions will include directions for any medications you should take after leaving the hospital. Please make sure to follow the advice of your surgeon regarding follow up with the surgeon and with your primary care provider. Activity: Resume your previous activity Non-emergency contact: Primary Care Provider, Oncologist and Urologist Call non-emergency contact if: you have any medication questions, your symptoms worsen, your pain is not controlled and you have a fever Follow-up/Referrals: Thuan Blunt MD [Physician] - (Anjelica from [place] [facility] will call you with a hospital follow up visit.) Anastacia Norton DO [Primary Care Provider] - Kizzy Cuellar MD [Physician] - (Dr. Cuellar office will call you with a hospital f/u visit.) Diet: Carb Consistent or DM2 and Heart Healthy Addtl Attending Provider Instructions: You have been hospitalized for an obstructing kidney stone. Urine culture was obtained but has had no growth. Given elevated white blood count and debris during cystoscopy and stent placement, and that they placed a Jennings catheter after, it was discussed that we should continue antibiotics with: Bactrim 1 tablet every twelve hours (dosed appropriately for your renal function) for the next three days. They also would like you to continue Flomax daily to help with any stone e xpulsion and prevention issues. You have been sent Pyridium to use as needed for bladder spasm. Continue Tylenol as needed for pain. You should follow up with Urology as they are arranging for stent removal as outpatient. Please follow up with heme/oncology for routine lab monitoring as well for your ET/MGUS. Please continue to ensure you stay well hydrated. Please return to the ER for any fever, worsening pain, inability to keep up with your oral intake, or for any other symptoms that are concerning for you. It has been a pleasure being a part of the medical team providing for you while you have been in the hospital. Take care! Pending Studies at Discharge: Yes Stand-Alone Forms: My [facility] Medications and DC Order Prescriptions: New sulfamethoxazole-trimethoprim [Bactrim DS] 800-160 mg Tablet 1 tab PO Q12 Qty: 6 RF: 0 tamsulosin 0.4 mg Capsule 0.4 mg PO HS Qty: 7 RF: 0 phenazopyridine [Pyridium] 100 mg tablet 100 mg PO Q8H PRN (Reason: pain) Qty: 7 RF: 0 Continued (DME) pen needle, diabetic [BD Ultra-Fine Mariama Pen Needle] 32 gauge x 5/32" needle See Dose Instructions .ROUTE .MEDSUPPLY Qty: 300 RF: 1 pantoprazole 40 mg tablet,delayed release (DR/EC) 40 mg PO DAILY Qty: 90 RF: 3 lisinopril 40 mg tablet 40 mg PO DAILY Qty: 90 RF: 3 metformin 1,000 mg tablet 1,000 mg PO BID Qty: 180 RF: 3 clonidine HCl 0.2 mg tablet 0.2 mg PO BID Qty: 180 RF: 1 diclofenac sodium 1 % gel 2 g TOP QID PRN (Reason: hip pain) Qty: 100 RF: 5 levothyroxine 50 mcg tablet 50 mcg PO DAILY Qty: 30 RF: 3 Humalog Mix 75-25 KwikPen 100 unit/mL (75-25) insulin pen See Rx Instructions SQ TID Qty: 45 RF: 1 (DME) FreeStyle Lite Strips Strip See Rx Instructions .Route Qty: 100 RF: 4 (DME) blood-glucose meter [FreeStyle Lite Meter] Kit See Rx Instructions .Route Qty: 1 RF: 0 (DME) lancets [FreeStyle Lancets] 28 gauge misc See Rx Instructions .Route Qty: 100 RF: 4 cyanocobalamin (vitamin B-12) 1,000 mcg tablet 1,000 mcg PO .COMPLEX RF: 0 calcium carbonate-vitamin D3 [Calcium 600 + D(3)] 600 mg(1,500mg) -400 unit tablet 1 tab PO BID Qty: 90 RF: 0 (DME) insulin syringe-needle U-100 [BD Insulin Syringe Ultra-Fine] 1 mL 31 gauge x 5/16 syringe See Dose Instructions .ROUTE .MEDSUPPLY Qty: 90 RF: 3 gabapentin 300 mg capsule 300 mg PO HS Qty: 90 RF: 1 ferrous sulfate 325 mg (65 mg iron) tablet 325 mg PO BID RF: 0 atorvastatin 10 mg tablet 10 mg PO HS RF: 0 Discharge Orders: Discharge Order (Routine); Ordered 01/12/22 Ordered By: Damari Silveira Admission Data Admit Date/Time: 01/10/22 22:53 Attending Provider: Guzman Muro Admit Provider: Demetra Levy Primary Care Provider: Anastacia Norton. Other Providers: Demetra Levy ; Thuan Blunt. Other Interventions: Discharge Summary Assessment (RN) Last Done: 01/12/22 15:15 Supervising Physician Co-Signing Physician Notes During face to face encounter, I obtained a physical examination and history of hospital stay with patient. I discussed discharge plan with patient and KATHLEEN Silveira. Ireveiwed above note and agree with it. CTAP: Obstructive left nephrolithiasis at the ureterovesical junction with resulting hydroureteronephrosis. Urology consulted * s/p cystoscopy, left retrograde pyelogram and left ureteral stent placement with Dr. Aguirre on 01/11 * Flomax at discharge, Pyridium prn. * F/U Urology for stent removal Coding Level of Care Code D/C DAY MANAGEMENT >30 MINS Diagnoses Renal stone N20.0 Diabetes type 2, uncontrolled E11.65 Hypertension I10 Dyslipidemia E78.5 Hypothyroidism E03.9 GERD (gastroesophageal reflux disease) K21.9 Chronic kidney disease, stage 3 (moderate) N18.3 Pulmonary nodule R91.1 Hypomagnesemia E83.42
[2022-01-12] MEDS ORDERED: SULFAMETHOXAZOLE/TRIMETHOPRIM DS 800/160MG TAB PO SCH (21:00)
== END 2022-01-12 16:52 | disposition home or self-care (01) | DRG 854 ==
LOC: ED 18:55 → SUATTDRO 22:53 → 3N 22:53